=== PATIENT | male | born 1955 | race Caucasian/White ===

== ENCOUNTER 2016-09-22 15:47 | Emergency (ER) | payer OTHER ==
[~2016-09-22] VITALS: Ht 182.9 cm; Wt 79.5 kg
[~2016-09-22 15:47] MED LIST: ALBU18HF INHALATION; ARIP10TA16 PO; BUPR-97 PO; CLOP75TA3 PO; FLUT12AE8 IH; MULT-1073 PO; PRAV40TA PO; SERT100T9 PO
[2016-09-22 15:56] VITALS: BP 132/90; PULSE 85; RESP 14; O2SAT 96
--- NOTE | 2016-09-22 16:15 | ED.REPORT ---
HPI-General Illness Date of Service Sep 22, 2016 ED Provider: Shannon Mckeon MD The patient is a 61 year old male with history of previous psychiatric admissions, past suicide attempts, and alcohol abuse, who was brought to the emergency department by police for suicidal statements. The patient is highly intoxicated and told police he wants to hurt himself and wants to . When asked how, he stated with his blood pressure mediation. The patient is unwilling to cooperate with exam and interview at this time. He will be in seclusion, see [id number] evaluation time below. He was in this emergency department on 08/19 and had a full lab workup at that point. At this visit he was agitated enough that he required pharmacological sedation. 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 Nursing Notes Stated Complaint: MENTAL EVAL/[facility] Chief Complaint: Psychiatric Complaint Nursing Notes Reviewed: Yes Allergies: Coded Allergies: Penicillins (Verified Allergy, Unknown, 05/15/16) Scheduled Aripiprazole (Aripiprazole) 10 Mg Tablet 10 MG PO HS Bupropion ER (Wellbutrin XL) 150 Mg Tab.er.24h 150 MG PO DAILY Clopidogrel Bisulfate (Plavix) 75 Mg Tablet 75 MG PO DAILY Fluticasone Propionate (Flovent HFA 110 mcg) 12 Gm Aer.w.adap 2 PUFFS IH BID Multivits-Min/FA/Lycopene/Lut (Centrum Silver Tablet) 1 Each Tablet 1 EACH PO DAILY Pravastatin (Pravastatin) 40 Mg Tablet 40 MG PO DAILY Sertraline HCl (Sertraline) 100 Mg Tablet 200 MG PO DAILY Scheduled PRN Albuterol Sulfate (Ventolin HFA Inhaler) 200 Puff/18 Gm Inhaler 2 PUFF INHALATION Q4 PRN PRN respiratory support General Time Seen by MD: 16:15 Chief Complaint Altered mental status Hx Obtained From: Police Unable to Obtain Hx: Patient condition, Uncooperative Arrived By: Police Sudden in Onset?: No Onset Occurred: Onset unknown Symptom Duration: Duration unknown Similar Sx Previous: Yes Past Medical History Past Medical History History of previous Suicide attempts, last care center admission April 2016, also March 2015, also [facility] to [facility] August 2014 (suicide attempts in 2009 by overdose, again overdose in 2013) Hypertension High cholesterol History of peripheral arterial disease Emphysema Alcohol abuse Reports: COPD Past Surgical History Denies Family History Noncontributory Smoking History Current Every Day Smoker Social History Alcohol Use: >5 per day Drug Use: Denies drug use Other Social History: Local resident Occupation lives with mother. unemployed at present Ambulatory Status Independent Review of Systems Unable to Obtain ROS Patient condition, Uncooperative Full Review of Systems Psychiatric: Reports: Suicidal ideation (reported by police and ED nurse) Physical Exam Uncooperative with inital examination Vital Signs Vital Signs Date Time Temp Pulse Resp B/P Pulse Ox O2 Delivery O2 Flow Rate FiO2 09/22/16 23:01 36.1 79 18 94/62 94 Room Air 09/22/16 15:56 36.1 85 14 132/90 96 Initial VS: Reviewed ENT: Mucous membranes moist Neck: Full range of motion Respiratory: Breath sounds normal, No respiratory distress Neurologic: Nonfocal General/Constitutional: Awake, Alert Disheveled Head / Eyes: Atraumatic, Normocephalic Unable to Evaluate: Positive: Uncooperative Interpretation & Diagnostics Interpretation & Diagnostics: Urine drug screen: negative Breathalyzer at 2051: 0.148 Breathalyzer at 2348: 0.113 Re-Eval/Medical Decision Source of Hx: Old records Time of Eval: 16:15 Re-Evaluation/Progress Note: [id number] evaluation completed at this time. Flight risk, when unlocking the door to examine the patient he is quick to try to depart. I agree with seclusion for flight risk, suicide risk, and danger to self and others. Time of Eval: 23:56 Re-Evaluation/Progress Note: Rechecked the patient. He is sleeping comfortably. I was able to preform the examination at this time. He is much more calm. He is awake but states he is tired. His heart and lungs are normal. He is still technically intoxication and clearly still suicidial. I anticipate that he will need need DCR evaluation and the patient will be turned over to Dr. Novak. Counseled Regarding: Diagnosis, Lab results Discharge & Departure Shift Change Sign-Out Patient Care Transferred: Yes (to Dr Novak) Discussed Complaint(s): Yes Response to Therapy: Improved, Discussed Initially very drunk and agressive. By midnight, still drunk, but much more cooperative. Allows full exam. Still states he very much wants to hurt himself. ETOH .11. Suspect he will need group home for suicidal ideation with plan to take pills. Not a good dano voluntary admit, continues to try to leave AMA despite calling police to ask for help initially. Lab work done 08/19/16 and was unremarkable. No medical reason to repeat labs today. Primary Impression: Suicidal ideation Additional Impression: Alcohol intoxication Discharge Condition All VS Reviewed: Yes Condition: Stable Referrals: Mercedes Stern MD (PCP) Care Transferred to: Dr. Novak Care Transferred at: 00:10 Scribe Attestation Portions of this note were transcribed by Nette Kelsey. I, Dr. Mckeon personally performed the history, physical exam and medical decision-making; I reviewed and confirmed the accuracy of the information in the transcribed note. Signed by:Kristen Borges, 09/22/2016 and 0018. copies to: Mercedes Stern MD, Shawna L MD Sep 22, 2016 16:15 Nette Kelsey Sep 22, 2016 16:28
[2016-09-22 23:01] VITALS: BP 94/62; PULSE 79; RESP 18; O2SAT 94
[2016-09-23 04:18] VITALS: BP 136/86; PULSE 92; RESP 16; O2SAT 95
[2016-09-23 07:56] VITALS: BP 141/89; PULSE 114; RESP 20; O2SAT 96
== END 2016-09-23 07:49 | disposition home or self-care (01) ==
LOC: SED 15:47
DX: R45.851 Suicidal ideations (principal); F10.129 Alcohol abuse with intoxication, unspecified; J44.9 Chronic obstructive pulmonary disease, unspecified; I10 Essential (primary) hypertension; F17.200 Nicotine dependence, unspecified, uncomplicated; Z91.5 Personal history of self-harm; Z88.0 Allergy status to penicillin

== ENCOUNTER 2016-09-26 13:18 | Emergency (ER) | payer OTHER ==
--- NOTE | 2016-09-26 13:59 | ED.REPORT ---
HPI-Psychiatric Illness Date of Service Sep 26, 2016 ED Provider: Williams Menjivar Patient is a 61 year old male with a history of alcohol abuse, suicidal ideation , and previous suicide attempt who presents to the ED in police custody after telling his counselor that he was suicidal with a plan to take all of his medications at once. The patient is unwilling to cooperate with exam and interview at this time. He will be in seclusion, see [id number] evaluation time below. Patient was seen in the department 4 days ago for similar circumstances. Nursing Notes Stated Complaint: SUICIDAL Chief Complaint: Psychiatric Complaint Nursing Notes Reviewed: Yes Allergies: Coded Allergies: Penicillins (Verified Allergy, Unknown, 05/15/16) Scheduled Aripiprazole (Aripiprazole) 10 Mg Tablet 10 MG PO HS Bupropion ER (Wellbutrin XL) 150 Mg Tab.er.24h 150 MG PO DAILY Clopidogrel Bisulfate (Plavix) 75 Mg Tablet 75 MG PO DAILY Fluticasone Propionate (Flovent HFA 110 mcg) 12 Gm Aer.w.adap 2 PUFFS IH BID Multivits-Min/FA/Lycopene/Lut (Centrum Silver Tablet) 1 Each Tablet 1 EACH PO DAILY Pravastatin (Pravastatin) 40 Mg Tablet 40 MG PO DAILY Sertraline HCl (Sertraline) 100 Mg Tablet 200 MG PO DAILY Scheduled PRN Albuterol Sulfate (Ventolin HFA Inhaler) 200 Puff/18 Gm Inhaler 2 PUFF INHALATION Q4 PRN PRN respiratory support General Time Seen by MD: 13:58 Chief Complaint Suicidal ideation Hx Obtained From: Patient, Police Arrived By: Police Similar Sx Previous: Yes Risk-Psychiatric Illness Risk Notes: not cooperative with RF review Suicide Risk Stratification RF Statements: Risk factors N/A Past Medical History Past Medical History History of previous Suicide attempts, last care center admission April 2016, also March 2015, also [facility]A to [facility] August 2014 (suicide attempts in 2009 by overdose, again overdose in 2013) Hypertension High cholesterol History of peripheral arterial disease Emphysema Alcohol abuse Depression Anxiety Reports: COPD Past Surgical History vasectomy Family History Noncontributory Smoking History Current Every Day Smoker Social History Previous suicide attempt Alcohol Use: >5 per day Drug Use: Denies drug use Other Social History: Local resident Occupation lives with mother. unemployed at present Ambulatory Status Independent Review of Systems Unable to Obtain ROS Uncooperative Physical Exam Initial Vital Signs Vital Signs (First) Date Time Temp Pulse Resp B/P Pulse Ox O2 Delivery O2 Flow Rate FiO2 09/26/16 16:22 36.4 65 14 111/71 100 Room Air Head / Eyes: Atraumatic, Normocephalic Neck: Supple Respiratory: Breath sounds normal, Clear to auscultation, No respiratory distress Cardiovascular: Regular rate & rhythm, Heart sounds normal, Intact distal pulses Abdomen / GI: Soft, Non-tender Skin: Warm, Dry General/Constitutional: Awake, Alert, Well developed Alert, refusing to talk Unable to Evaluate: Positive: Uncooperative Nonverbal, Will not make eye contact, resisting examination. Uncooperative when preparing to be seen. Interpretation & Diagnostics Lab Results Interpretation Result Diagram: 09/26/16 1620 09/26/16 1620 Test 09/26/16 16:20 White Blood Count 5.4th/mm3 (3.8-10.1) Red Blood Count 4.65mil/mm3 (4.40-5.80) Hemoglobin 15.4g/dL (13.8-17.2) Hematocrit 44.4% (41.0-50.0) Mean Corpuscular Volume 95.5fL (81-100) Mean Corpuscular Hemoglobin 33.1pg (27.0-35.0) Mean Corpuscular Hemoglobin Concent 34.7% (32.0-37.0) Red Cell Distribution Width 14.0% (12.3-15.4) Platelet Count 188bil/L (150-400) Neutrophils (%) (Auto) 48.4% (40-74) Lymphocytes (%) (Auto) 40.9% (14-46) Monocytes (%) (Auto) 6.4% (4-12) Eosinophils (%) (Auto) 3.4% (0-5) Basophils (%) (Auto) 0.7% (0-3) Sodium Level 143mEq/L (134-144) Potassium Level 4.2mEq/L (3.5-5.2) Chloride Level 104mEq/L (97-108) Carbon Dioxide Level 22mmol/L (18-29) Blood Urea Nitrogen 12mg/dL (6-24) Creatinine 0.90mg/dL (0.76-1.27) Estimat Glomerular Filtration Rate 92mL/min (>59) Glucose Level 89mg/dL (60-99) Calcium Level 8.4mg/dL (8.5-10.1) Total Bilirubin 0.2mg/dL (0.0-1.2) Aspartate Amino Transf (AST/SGOT) 32U/L (0-50) Alanine Aminotransferase (ALT/SGPT) 27U/L (0-44) Alkaline Phosphatase 136U/L (25-160) Total Protein 7.0g/dL (6.4-8.4) Albumin 4.3g/dL (3.4-5.0) Thyroid Stimulating Hormone (TSH) 1.110uIU/mL (0.450-4.500) Hold Epps Top Tube Received (Received) Alcohol, Quantitative 239mg/dL (0-10) Re-Eval/Medical Decision Med Decision/Clinical Course 61-year-old male intoxicated and with suicidal ideation. He required greater than restraint in the past. Today he is not interacting or making eye or making eye contact. Started in 4. restraints and sedated with Haldol IM. Will have to be sobered. Re-Evaluation/Progress #1: Time of Eval: 14:37 Re-Evaluation/Progress Note: Attempt to re-examine patient. He is still uncooperative. Re-Evaluation/Progress #2: Time of Eval: 16:04 Re-Evaluation/Progress Note: Rechecked patient. He is somnolent but cooperative. Eyes opne, responsive, not actively resisting. Re-Evaluation/Progress #3: Time of Eval: 18:39 Patient Status: Condition improved Re-Evaluation/Progress Note: Pt rechecked by Dr. Jackson after shift-change signover. He is sleeping comfortably and is no long in restraints. Discharge & Departure Shift Change Sign-Out Patient Care Transferred: Yes Discussed Complaint(s): Yes Laboratory Evaluation: Lab evaluation discussed Additonal Information: Transfer of care to [facility] at 1800 Referrals: Mercedes Stern MD (PCP) Scribe Attestation Portions of this note were transcribed by Jevon Sultana. I, Dr. Menjivar personally performed the history, physical exam and medical decision-making; I reviewed and confirmed the accuracy of the information in the transcribed note. Signed by: Jevon Sultana 09/26/16, 1808 copies to: Mercedes Stern MD, Donald L MD Sep 26, 2016 13:59 JEVON SULTANA Sep 26, 2016 14:09 ARIELA HOYOS Sep 26, 2016 18:39
[2016-09-26] MEDS ORDERED: Haloperidol 5 mg/mL Inj IM ONE (14:40)
[2016-09-26 16:22] VITALS: BP 111/71; PULSE 65; RESP 14; O2SAT 100
[2016-09-26 16:34] LABS: BASOPHILS % (AUTO) 0.7 % (0-3); EOSINOPHILS % (AUTO) 3.4 % (0-5); MONOCYTES % (AUTO) 6.4 % (4-12); Mean Corpuscular Hemoglobin 33.1 pg (27.0-35.0); Mean Corpuscular Volume 95.5 fL (81-100); NEUTROPHILS % (AUTO) 48.4 % (40-74); Platelet Count 188 bil/L (150-400)
[2016-09-26 23:19] VITALS: BP 129/68; PULSE 60; RESP 24; O2SAT 98
[2016-09-27 00:57] VITALS: BP 135/81; PULSE 133; RESP 22; O2SAT 95
== END 2016-09-27 00:58 | disposition home or self-care (01) ==
LOC: SED 13:18
DX: F10.129 Alcohol abuse with intoxication, unspecified (principal); R45.851 Suicidal ideations; I10 Essential (primary) hypertension; J44.9 Chronic obstructive pulmonary disease, unspecified; F17.200 Nicotine dependence, unspecified, uncomplicated; Z91.5 Personal history of self-harm; Z88.0 Allergy status to penicillin
CPT/HCPCS: 36415; 80053; 81002; 82075; 84443; 85025; 96372; 99285; G0480; J1200; J1630

== ENCOUNTER 2016-10-04 02:22 | Emergency (ER) | payer OTHER ==
[~2016-10-04] VITALS: Ht 185.4 cm; Wt 81.8 kg
[2016-10-04 02:29] VITALS: BP 124/83; PULSE 72; O2SAT 97
--- NOTE | 2016-10-04 02:35 | ED.REPORT ---
HPI-Psychiatric Illness Date of Service Oct 04, 2016 ED Provider: Manuel Cooper MD Pt is a 61 y.o. male with a hx of hospitalization secondary to suicide attempts , anxiety, depression, and ETOH abuse who presents to the ED via police c/o suicidal ideation. Pt called [facility] stating he wanted to take a 'lot of pills' and wanted to be taken to the hospital, they contacted police. Per police, pt requested to be taken to [facility]', when informed by officers that they could not take him there but could bring him to [place] or [facility] the pt requested [facility]. Upon arrival to the ED pt is still requesting to be transferred to [facility]. Pt endorses to ETOH use. Nursing Notes Stated Complaint: SUICIDAL IDEATION Chief Complaint: Psychiatric Complaint Nursing Notes Reviewed: Yes Allergies: Coded Allergies: Penicillins (Verified Allergy, Unknown, 10/04/16) Scheduled Aripiprazole (Aripiprazole) 10 Mg Tablet 10 MG PO HS Bupropion ER (Wellbutrin XL) 150 Mg Tab.er.24h 150 MG PO DAILY Clopidogrel Bisulfate (Plavix) 75 Mg Tablet 75 MG PO DAILY Fluticasone Propionate (Flovent HFA 110 mcg) 12 Gm Aer.w.adap 2 PUFFS IH BID Multivits-Min/FA/Lycopene/Lut (Centrum Silver Tablet) 1 Each Tablet 1 EACH PO DAILY Pravastatin (Pravastatin) 40 Mg Tablet 40 MG PO DAILY Sertraline HCl (Sertraline) 100 Mg Tablet 200 MG PO DAILY Scheduled PRN Albuterol Sulfate (Ventolin HFA Inhaler) 200 Puff/18 Gm Inhaler 2 PUFF INHALATION Q4 PRN PRN respiratory support General Time Seen by MD: 02:35 Chief Complaint Suicidal ideation Hx Obtained From: Patient, Police Arrived By: Police Onset Occurred: Just prior to arrival Context of Onset: Intoxicated, alcohol Symptom Duration: Since onset Risk-Psychiatric Illness Suicide Risk Stratification Suicide Risk Factors - Adult: : Alcohol use: Previous attempt: Prior psych admission RF Statements: Risk factors reviewed Past Medical History Past Medical History History of previous Suicide attempts, last care center admission April 2016, also March 2015, also SAMANTHA to [facility] August 2014 (suicide attempts in 2009 by overdose, again overdose in 2013) Hypertension High cholesterol History of peripheral arterial disease Emphysema Alcohol abuse Depression Anxiety Reports: COPD Past Surgical History vasectomy Family History Noncontributory Smoking History Current Every Day Smoker Social History Previous suicide attempt Alcohol Use: >5 per day Drug Use: Denies drug use Other Social History: Local resident Occupation lives with mother. unemployed at present Ambulatory Status Independent Review of Systems ETOH intoxication Psychiatric: Reports: Suicidal ideation Complete sys rev & neg: except as marked. Physical Exam Initial Vital Signs Vital Signs (First) Date Time Temp Pulse Resp B/P Pulse Ox O2 Delivery O2 Flow Rate FiO2 10/04/16 02:29 36.3 72 124/83 97 Room Air 10/04/16 06:05 14 Initial VS: Reviewed Respiratory: Breath sounds normal, No respiratory distress Cardiovascular: Regular rate & rhythm Abdomen / GI: No distention Extremities: Vascular intact, Neuro intact Skin: Warm, Dry, No cyanosis General/Constitutional: Awake, Alert, Well appearing, Well developed, Well hydrated, Well nourished, Not toxic appearing Behavior: Positive: Uncooperative Appearance / Presentation: Positive: Intoxicated Pt is resiting evaluation Neurologic: Oriented X3, Speech NL, No motor deficits, Gait NL Psychiatric: Not homicidal, No hallucinations Abnormal Thinking / Perception: Positive: Suicidal, with plan (Overdose) Head / Eyes: Atraumatic, Normocephalic Eye Movement: Positive: Nystagmus present Interpretation & Diagnostics Lab Results Interpretation Result Diagram: 10/04/16 0338 10/04/16 0338 Test 10/04/16 03:38 White Blood Count 5.5th/mm3 (3.8-10.1) Red Blood Count 4.83mil/mm3 (4.40-5.80) Hemoglobin 16.0g/dL (13.8-17.2) Hematocrit 46.5% (41.0-50.0) Mean Corpuscular Volume 96.3fL (81-100) Mean Corpuscular Hemoglobin 33.1pg (27.0-35.0) Mean Corpuscular Hemoglobin Concent 34.4% (32.0-37.0) Red Cell Distribution Width 13.8% (12.3-15.4) Platelet Count 176bil/L (150-400) Neutrophils (%) (Auto) 53.3% (40-74) Lymphocytes (%) (Auto) 34.2% (14-46) Monocytes (%) (Auto) 7.7% (4-12) Eosinophils (%) (Auto) 3.7% (0-5) Basophils (%) (Auto) 0.7% (0-3) Sodium Level 141mEq/L (134-144) Potassium Level 4.2mEq/L (3.5-5.2) Chloride Level 102mEq/L (97-108) Carbon Dioxide Level 23mmol/L (18-29) Blood Urea Nitrogen 9mg/dL (6-24) Creatinine 1.04mg/dL (0.76-1.27) Estimat Glomerular Filtration Rate 78mL/min (>59) Glucose Level 105mg/dL (60-99) Calcium Level 8.9mg/dL (8.5-10.1) Total Bilirubin 0.3mg/dL (0.0-1.2) Aspartate Amino Transf (AST/SGOT) 35U/L (0-50) Alanine Aminotransferase (ALT/SGPT) 36U/L (0-44) Alkaline Phosphatase 119U/L (25-160) Total Protein 7.1g/dL (6.4-8.4) Albumin 4.0g/dL (3.4-5.0) Thyroid Stimulating Hormone (TSH) 1.780uIU/mL (0.450-4.500) Hold Epps Top Tube Received (Received) Alcohol, Quantitative 207mg/dL (0-10) Re-Eval/Medical Decision Med Decision/Clinical Course Alcoholic patient with history of depression, and suicidal threats in association with excess alcohol consumption, presents here ostensibly for transport [facility]. I contacted [facility] and they have no bed in no particular intention of admitting him. He arrived is voluntary and then tried to leave. We explained to him he would no longer be voluntary rigidity would be forced to stay. He has relented at this point and will remain through his evaluation. His alcohol was 207 on intake, and he will require sobriety before further review can be conducted. He was uncooperative with initial physical exam but is in no distress. Care transferred to Dr. Andesron at 6 AM. Source of Hx: Old records Consultation : Call Returned at: 02:45 Note: Discussed with Donavan Hsu's pt's request to be transferred. They are unable to accomadate the pt at this time. Counseled Regarding: Diagnosis, Lab results, Need for follow-up, When/why to return to ED Discharge & Departure Shift Change Sign-Out Response to Therapy: Improved Impression: Primary Impression: Suicidal ideation Additional Impression: Alcohol intoxication Complication of substance-induced condition: uncomplicated Qualified Code: F10.120 - Alcohol abuse with intoxication, uncomplicated Discharge Condition All VS Reviewed: Yes Condition: Stable Referrals: Mercedes Stern MD (PCP) Care Transferred to: Dr. Soto Care Transferred at: 06:00 Kristen Attestation Portions of this note were transcribed by Dariusz Johnson. I, Dr. Cooper personally performed the history, physical exam and medical decision-making; I reviewed and confirmed the accuracy of the information in the transcribed note. Signed by: Kristen Leung, 10/04/16 and 0534. copies to: Mercedes Stern MD, Christopher W MD Oct 04, 2016 02:35 DARIUSZ JOHNSON Oct 04, 2016 02:48
[2016-10-04 03:53] LABS: BASOPHILS % (AUTO) 0.7 % (0-3); EOSINOPHILS % (AUTO) 3.7 % (0-5); MONOCYTES % (AUTO) 7.7 % (4-12); Mean Corpuscular Hemoglobin 33.1 pg (27.0-35.0); Mean Corpuscular Volume 96.3 fL (81-100); NEUTROPHILS % (AUTO) 53.3 % (40-74); Platelet Count 176 bil/L (150-400)
[2016-10-04 06:05] VITALS: BP 113/77; PULSE 81; RESP 14; O2SAT 97
[2016-10-04 10:06] VITALS: BP 140/86; PULSE 86; O2SAT 94
[2016-10-04 12:50] VITALS: BP 153/98; PULSE 76; O2SAT 96
[2016-10-04 15:25] VITALS: BP 153/98; PULSE 76; RESP 14; O2SAT 96
== END 2016-10-04 15:26 | disposition home or self-care (01) ==
LOC: SED 02:22
DX: R45.851 Suicidal ideations (principal); F10.120 Alcohol abuse with intoxication, uncomplicated; F17.200 Nicotine dependence, unspecified, uncomplicated; Z91.5 Personal history of self-harm
CPT/HCPCS: 36415; 80053; 82075; 84443; 85025; 90791; 99284; G0480

== ENCOUNTER 2016-10-27 12:28 | Emergency (ER) | payer OTHER ==
[2016-10-27 12:38] VITALS: BP 138/93; PULSE 73; RESP 21; O2SAT 97
--- NOTE | 2016-10-27 13:26 | ED.REPORT ---
HPI-Psychiatric Illness Date of Service Oct 27, 2016 ED Provider: Francisco Hall MD Pt is a 61 y/o male w/ a long hx of alcohol abuse, psychiatric admissions, suicide attempts, anxiety, depression, presenting to the ED via police due to suicidal ideations onset today. The patient is intoxicated at the moment and no history is able to be obtained at time of interview. He is uncooperative and does not wish to answer questions once he is awoken. [place] reports that the pt had a time study analyst knife at home and plan was to cut his stomach today. Nursing Notes Stated Complaint: INVOLUNTARY Chief Complaint: Psychiatric Complaint Nursing Notes Reviewed: Yes Allergies: Coded Allergies: Penicillins (Verified Allergy, Unknown, 10/04/16) Scheduled Aripiprazole (Aripiprazole) 10 Mg Tablet 10 MG PO HS Bupropion ER (Wellbutrin XL) 150 Mg Tab.er.24h 150 MG PO DAILY Clopidogrel Bisulfate (Plavix) 75 Mg Tablet 75 MG PO DAILY Fluticasone Propionate (Flovent HFA 110 mcg) 12 Gm Aer.w.adap 2 PUFFS IH BID Multivits-Min/FA/Lycopene/Lut (Centrum Silver Tablet) 1 Each Tablet 1 EACH PO DAILY Pravastatin (Pravastatin) 40 Mg Tablet 40 MG PO DAILY Sertraline HCl (Sertraline) 100 Mg Tablet 200 MG PO DAILY Scheduled PRN Albuterol Sulfate (Ventolin HFA Inhaler) 200 Puff/18 Gm Inhaler 2 PUFF INHALATION Q4 PRN PRN respiratory support General Time Seen by MD: 13:07 Chief Complaint Suicidal ideation Hx Obtained From: Police Unable to Obtain Hx: Uncooperative, Intoxicated, Mental status Arrived By: Police Onset Occurred: 1 - 4 hours ago Symptom Duration: Since onset Progression Since Onset: Unchanged Risk-Psychiatric Illness Suicide Risk Stratification Suicide Risk Factors - Adult: : Alcohol use: Previous attempt: Prior psych admission: Substance abuse RF Statements: Risk factors reviewed Past Medical History Past Medical History History of previous Suicide attempts, last care center admission April 2016, also March 2015, also SAMANTHA to [facility] August 2014 (suicide attempts in 2009 by overdose, again overdose in 2013) Hypertension High cholesterol History of peripheral arterial disease Emphysema Alcohol abuse Depression Anxiety Reports: COPD Past Surgical History vasectomy Family History Noncontributory Smoking History Current Every Day Smoker Social History Previous suicide attempt Alcohol Use: >5 per day Drug Use: Denies drug use Other Social History: Local resident Occupation lives with mother. unemployed at present Ambulatory Status Independent Review of Systems Unable to Obtain ROS Uncooperative, Intoxicated, Mental status Psychiatric: Reports: Suicidal ideation Physical Exam Initial Vital Signs Vital Signs (First) Date Time Temp Pulse Resp B/P Pulse Ox O2 Delivery O2 Flow Rate FiO2 10/27/16 12:38 36.6 73 21 138/93 97 Room Air Initial VS: Reviewed, Vital signs normal Head / Eyes: Atraumatic, Normocephalic, PERRL ENT: Mucous membranes moist, Conjunctiva normal, No scleral icterus Neck: Supple, Full range of motion Respiratory: Breath sounds normal, Clear to auscultation, No respiratory distress Cardiovascular: Regular rate & rhythm, Heart sounds normal, Intact distal pulses Abdomen / GI: Soft, Non-tender Extremities: Vascular intact, Neuro intact, No swelling, No tenderness Skin: Warm, Dry, No cyanosis General/Constitutional: Awake, Alert, Not toxic appearing Behavior: Positive: Appears intoxicated, Uncooperative Appearance / Presentation: Positive: Intoxicated Sleeping comfortably - once awoken he does not wish to answer questions Neurologic: No motor deficits, No sensory deficits Opens eyes to voice and withdraws from pain Psychiatric: No hallucinations Unable to assess secondary to noncompliance vs intoxication Interpretation & Diagnostics Lab Results Interpretation Result Diagram: 10/27/16 1500 10/27/16 1500 Test 10/27/16 15:00 10/27/16 15:20 White Blood Count 7.4th/mm3 (3.8-10.1) Red Blood Count 5.53mil/mm3 (4.40-5.80) Hemoglobin 18.9g/dL (13.8-17.2) Hematocrit 53.6% (41.0-50.0) Mean Corpuscular Volume 96.9fL (81-100) Mean Corpuscular Hemoglobin 34.2pg (27.0-35.0) Mean Corpuscular Hemoglobin Concent 35.3% (32.0-37.0) Red Cell Distribution Width 14.5% (12.3-15.4) Platelet Count 235bil/L (150-400) Neutrophils (%) (Auto) 47.1% (40-74) Lymphocytes (%) (Auto) 42.3% (14-46) Monocytes (%) (Auto) 6.4% (4-12) Eosinophils (%) (Auto) 3.0% (0-5) Basophils (%) (Auto) 0.9% (0-3) Sodium Level 141mEq/L (134-144) Potassium Level 5.0mEq/L (3.5-5.2) Chloride Level 101mEq/L (97-108) Carbon Dioxide Level 23mmol/L (18-29) Blood Urea Nitrogen 7mg/dL (6-24) Creatinine 0.95mg/dL (0.76-1.27) Estimat Glomerular Filtration Rate 86mL/min (>59) Glucose Level 109mg/dL (60-99) Calcium Level 9.2mg/dL (8.5-10.1) Total Bilirubin 0.3mg/dL (0.0-1.2) Aspartate Amino Transf (AST/SGOT) 28U/L (0-50) Alanine Aminotransferase (ALT/SGPT) 28U/L (0-44) Alkaline Phosphatase 137U/L (25-160) Total Protein 7.9g/dL (6.4-8.4) Albumin 4.6g/dL (3.4-5.0) Thyroid Stimulating Hormone (TSH) 1.650uIU/mL (0.450-4.500) Alcohol, Quantitative 208mg/dL (0-10) Hold Epps Top Tube Received (Received) Re-Eval/Medical Decision Med Decision/Clinical Course 61-year-old male with history of alcohol abuse and long history of suicidal ideation presenting with suicidal ideation with plan to kill himself with a knife to his abdomen. He is acutely intoxicated with blood alcohol level 200. He is sobering up and then will be evaluated by social work. Signed patient out to Dr. Krishna. Source of Hx: Old records Counseled Regarding: Diagnosis, Lab results Discharge & Departure Impression: Primary Impression: Suicidal ideation Additional Impression: Acute alcohol intoxication Complication of substance-induced condition: uncomplicated Qualified Code: F10.120 - Alcohol abuse with intoxication, uncomplicated Discharge Condition All VS Reviewed: Yes Condition: Stable Referrals: Mercedes Stern MD (PCP) Care Transferred to: Dr. Neal Krishna DO Care Transferred at: 18:00 Scribe Attestation Portions of this note were transcribed by Dustin Rodriguez. I, Dr. Hall personally performed the history, physical exam and medical decision-making; I reviewed and confirmed the accuracy of the information in the transcribed note. Signed by Kristen Bragg, 10/27/16 - 1799 copies to: Mercedes Stern MD, Ben M MD Oct 27, 2016 13:26 DUSTIN RODRIGUEZ Oct 27, 2016 13:38
[2016-10-27 14:32] VITALS: BP 140/86; PULSE 91; RESP 20; O2SAT 96
[2016-10-27 15:45] LABS: BASOPHILS % (AUTO) 0.9 % (0-3); MONOCYTES % (AUTO) 6.4 % (4-12); Mean Corpuscular Hemoglobin 34.2 pg (27.0-35.0); Mean Corpuscular Volume 96.9 fL (81-100); NEUTROPHILS % (AUTO) 47.1 % (40-74); Platelet Count 235 bil/L (150-400)
[2016-10-27 21:51] VITALS: BP 129/75; PULSE 83; RESP 16; O2SAT 98
== END 2016-10-27 21:58 | disposition home or self-care (01) ==
LOC: SED 12:28
DX: R45.851 Suicidal ideations (principal); F10.120 Alcohol abuse with intoxication, uncomplicated; I10 Essential (primary) hypertension; F17.200 Nicotine dependence, unspecified, uncomplicated; Z88.0 Allergy status to penicillin
CPT/HCPCS: 36415; 80053; 84443; 85025; 99284; G0480

== ENCOUNTER 2016-12-20 16:00 | Inpatient (IN) | payer OTHER ==
[~2016-12-20] VITALS: Ht 185.4 cm; Wt 81.8 kg
[2016-12-20 16:05] VITALS: BP 137/98; PULSE 103; RESP 18; O2SAT 97
--- NOTE | 2016-12-20 16:10 | ED.REPORT ---
HPI-Psychiatric Illness Date of Service Dec 20, 2016 ED Provider: Dr. Soto 61 y/o male with a hx of depression, anxiety and previous suicide attempts who was brought it in to the ED by the police for depression and suicidal ideation. He reported to the police that he has been drinking EtOH. As per the police report, he had a plan to run into the traffic. Pt stated that he did not feel good and denies any injury or falls, but otherwise would not cooperative in the ED. History difficult to obtain. Nursing Notes Stated Complaint: SUICIDAL Chief Complaint: Psychiatric Complaint Nursing Notes Reviewed: Yes Allergies: Coded Allergies: Penicillins (Verified Allergy, Unknown, 10/04/16) Scheduled Aripiprazole (Aripiprazole) 10 Mg Tablet 10 MG PO HS Bupropion ER (Wellbutrin XL) 150 Mg Tab.er.24h 150 MG PO DAILY Clopidogrel Bisulfate (Plavix) 75 Mg Tablet 75 MG PO DAILY Fluticasone Propionate (Flovent HFA 110 mcg) 12 Gm Aer.w.adap 2 PUFFS IH BID Multivits-Min/FA/Lycopene/Lut (Centrum Silver Tablet) 1 Each Tablet 1 EACH PO DAILY Pravastatin (Pravastatin) 40 Mg Tablet 40 MG PO DAILY Sertraline HCl (Sertraline) 100 Mg Tablet 200 MG PO DAILY Scheduled PRN Albuterol Sulfate (Ventolin HFA Inhaler) 200 Puff/18 Gm Inhaler 2 PUFF INHALATION Q4 PRN PRN respiratory support General Time Seen by MD: 16:10 Chief Complaint Suicidal ideation Hx Obtained From: Police Unable to Obtain Hx: Intoxicated Arrived By: Police Symptom Duration: Since onset Severity: Current: No pain currently Severity: Maximum: No pain Recent Healthcare: Recent doctor visit Similar Sx Previous: Yes Risk-Psychiatric Illness Suicide Risk Stratification Suicide Risk Factors - Adult: : Alcohol use: Previous attempt RF Statements: Risk factors reviewed Past Medical History Past Medical History History of previous Suicide attempts, last care center admission April 2016, also March 2015, also SAMANTHA to [facility] August 2014 (suicide attempts in 2009 by overdose, again overdose in 2013) Hypertension High cholesterol History of peripheral arterial disease Emphysema Alcohol abuse Depression Anxiety Reports: COPD Reports: Depression Past Surgical History vasectomy Family History Noncontributory Smoking History Current Every Day Smoker Social History Previous suicide attempt Alcohol Use: >5 per day Drug Use: Denies drug use Other Social History: Local resident Occupation lives with mother. unemployed at present Ambulatory Status Independent Review of Systems Unable to Obtain ROS Uncooperative Psychiatric: Reports: Depression, Suicidal ideation Physical Exam Initial Vital Signs Vital Signs (First) Date Time Temp Pulse Resp B/P Pulse Ox O2 Delivery O2 Flow Rate FiO2 12/20/16 16:05 36.1 103 18 137/98 97 Room Air Initial VS: Reviewed, Vital signs normal Head / Eyes: Atraumatic, Normocephalic ENT: Mucous membranes moist, Conjunctiva normal, No scleral icterus Neck: Supple, Full range of motion Respiratory: No respiratory distress Cardiovascular: Intact distal pulses Extremities: Vascular intact, Neuro intact Skin: Warm, Dry, No cyanosis General/Constitutional: Awake, Alert Good eye contact Appers intoxicated Flat affect Unresponsive Neurologic: Speech NL, No motor deficits Abnormal Mood/Affect: Positive: Flat affect Abnormal Thinking / Perception: Positive: Suicidal, with plan Interpretation & Diagnostics Lab Results Interpretation Result Diagram: 12/20/16 1621 12/20/16 1621 Test 12/20/16 16:21 12/20/16 20:50 White Blood Count 8.4th/mm3 (3.8-10.1) Red Blood Count 4.85mil/mm3 (4.40-5.80) Hemoglobin 16.4g/dL (13.8-17.2) Hematocrit 48.9% (41.0-50.0) Mean Corpuscular Volume 100.8fL (81-100) Mean Corpuscular Hemoglobin 33.8pg (27.0-35.0) Mean Corpuscular Hemoglobin Concent 33.5% (32.0-37.0) Red Cell Distribution Width 13.0% (12.3-15.4) Platelet Count 208bil/L (150-400) Neutrophils (%) (Auto) 62.6% (40-74) Lymphocytes (%) (Auto) 26.8% (14-46) Monocytes (%) (Auto) 7.1% (4-12) Eosinophils (%) (Auto) 2.4% (0-5) Basophils (%) (Auto) 0.7% (0-3) Sodium Level 139mEq/L (134-144) Potassium Level 4.0mEq/L (3.5-5.2) Chloride Level 101mEq/L (97-108) Carbon Dioxide Level 20mmol/L (18-29) Blood Urea Nitrogen 9mg/dL (6-24) Creatinine 0.78mg/dL (0.76-1.27) Estimat Glomerular Filtration Rate 108mL/min (>59) Glucose Level 97mg/dL (60-99) Calcium Level 9.2mg/dL (8.5-10.1) Total Bilirubin 0.2mg/dL (0.0-1.2) Aspartate Amino Transf (AST/SGOT) 20U/L (0-50) Alanine Aminotransferase (ALT/SGPT) 19U/L (0-44) Alkaline Phosphatase 99U/L (25-160) Total Protein 7.4g/dL (6.4-8.4) Albumin 4.1g/dL (3.4-5.0) Thyroid Stimulating Hormone (TSH) 1.770uIU/mL (0.450-4.500) Hold Urine Received (Received) General Lab Results Interp 1: Labs reviewed Re-Eval/Medical Decision Med Decision/Clinical Course Decompensated depression and suicidal ideations despite sobriety, we will plan to detain the patient as he does not agree to be safe. Also will plan to have the patient mated to an inpatient psychiatric facility. He is medically cleared from a psych perspective. Of note I do not see any records of severe alcohol withdrawal in his medical history based on visits to our hospital. Consultation : Consulted With: plant production worker, Mental health Call Returned at: 23:32 Note: Discussed case with social sciences instructor. Recommended VOA. Lakhani then evaluated patient. Pt will be detained. Counseled Regarding: Diagnosis Discharge & Departure Impression: Primary Impression: Suicidal ideation Additional Impression: Alcohol intoxication Complication of substance-induced condition: uncomplicated Qualified Code: F10.120 - Alcohol abuse with intoxication, uncomplicated Discharge Condition All VS Reviewed: Yes Referrals: Mercedes Stern MD (PCP) Scribe Attestation Portions of this note were transcribed by Ras Gambino and Dali Pepper. I, Dr. Soto personally performed the history, physical exam and medical decision-making;I reviewed and confirmed the accuracy of the information in the transcribed note. Signed by Ras Gambino and Dali Pepper, Inésibe. 12/20/16 [id number] copies to: Mercedes Stern MD, Timothy S DO Dec 20, 2016 16:10 Ras Gambino Dec 20, 2016 16:42 Dali Pepper Dec 20, 2016 20:29
[2016-12-20 16:30] LABS: BASOPHILS % (AUTO) 0.7 % (0-3); EOSINOPHILS % (AUTO) 2.4 % (0-5); MONOCYTES % (AUTO) 7.1 % (4-12); Mean Corpuscular Hemoglobin 33.8 pg (27.0-35.0); Mean Corpuscular Volume 100.8 fL (81-100); NEUTROPHILS % (AUTO) 62.6 % (40-74); Platelet Count 208 bil/L (150-400)
[2016-12-20 20:53] VITALS: BP 137/89; PULSE 105; RESP 16; O2SAT 94
[2016-12-21 01:44] VITALS: BP 124/84; PULSE 90; RESP 16; O2SAT 98
[2016-12-21] MEDS ORDERED: Benzocaine-Menthol Lozenge 2/Pkg PO PRN (01:50)
[2016-12-21] MEDS ORDERED: LORazepam 1 mg Tablet PO PRN ×2 (01:50→12:45)
[2016-12-21] MEDS ORDERED: hydrOXYzine Pamoate 25 mg Capsule PO PRN (01:50)
[2016-12-21] MEDS ORDERED: Alum-Mag Hydrox-Simeth 30 mL Suspension PO PRN (01:50)
[2016-12-21] MEDS ORDERED: Magnesium Hydroxide 10 mL Oral Concentration PO PRN (01:50)
[2016-12-21 02:02] VITALS: BP 124/84; PULSE 90; RESP 16; O2SAT 98
--- NOTE | 2016-12-21 02:45 | NUR ---
admit note nursing this is a 61 yr male who was brought to [facility] er by police. has been drinking and expressed wanting to by going into traffic or lying on railroad tracks. was medically cleared, evaluated and detained audrey as a danger to self. has been admitted to this unit 3 times and once to [facility]. has a hx of depression related to a divorce and fathers . made 2 previous attempts of overdose. no current out patient. arrived to this unit at 0200 with er/security staff. presented as flat and withdrawn. is cooperative with admission. physical assessment- denies any acute medical/physical injury/need and none is apparent. long hx of etoh use. no hx of withdrawal symptoms. completed the admission process, searched, agrees to no self harm, briefly oriented to the unit, given bed 219, appeared to sleep after 0230, assessed q 15 minutes. amira
--- NOTE | 2016-12-21 05:12 | NUR ---
Pt arrived to unit at 0200. He had signed paperwork with [facility] in ER. Went to bed after a brief orientation of what to expect for the rest of the night and morning. Asleep at 230. Pt observed every 15 minutes as ordered.
[2016-12-21] MEDS ORDERED: CLOP75TA28 PO (08:09)
[2016-12-21] MEDS ORDERED: METO-272 PO (08:09)
[2016-12-21] MEDS ORDERED: ATOR40TA69 PO (08:09)
[2016-12-21] MEDS ORDERED: Thiamine 100 mg/mL 2 mL Inj IM ONE (12:40)
--- NOTE | 2016-12-21 14:16 | HP ---
[address] [address] HISTORY AND PHYSICAL PATIENT: ACSTRO REYNOLDS : 1955 MR#: [id number] ADMIT: 12/21/2016 JOB ID: [id number] IDENTIFICATION OF PATIENT: The patient is a 61-year-old male previously known to the inpatient unit with most recent admission in April 2016. The patient reportedly was admitted through the emergency department under SAMANTHA status with significant concerns of safety with suicidal ideation under the influence of alcohol with the threat and plan of running into traffic. The patient readily identified that he has increased his alcohol intake over the past month of greater than 1/5 up to 1 L per day. CHIEF COMPLAINT: "I really do not want to go back through treatment, but I know I need to cut back on my drinking." HISTORY OF PRESENT ILLNESS: As stated above, the patient is a 61-year-old male well known to the inpatient unit. He reportedly has had greater than three admissions historically, most recent in April 2016, and also a previous detainment to [facility] in August 2014. The patient reportedly has a significant history of alcohol treatment in the past as well, stating that he went through [facility] greater than 10 years ago. In review of his current status, the patient states that he lives at home with his mother. 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 He indicates that he does have a fairly good pension. He reports that he has increased his alcohol intake over the past month but gave no specific reasoning. He indicates that he has no prior history of acute DTs or seizure activity. He reports that he does receive his medication interventions through his primary care physician through [facility] but is not currently connected with a psychiatric care provider. He reportedly is maintained on doses of Abilify 10 mg q.h.s., Wellbutrin 150 mg daily and Zoloft 200 mg daily but indicates that he primarily is just taking Zoloft. In review of his current status of depression he indicated that he is aware that alcohol is leading to increasing difficulties with depression. He states that he understands the mechanism and that he knows he needs to begin cutting back. He indicates that he would be willing to consider attendance at local AA chapter meetings and also is agreeable to initiate outpatient individual therapy, stating that it has been very difficult to get in to see anyone. He denies any evidence of current suicidal ideation, intent, or plan and stated that he knows that he becomes quite despondent when he is drinking. PAST MEDICAL HISTORY: Substantial for history of hypertension, hyperlipidemia, history of PAD, emphysema. ALLERGIES: He is allergic to PENICILLIN. CURRENT MEDICATIONS: Include: 1. Abilify 10 mg q.h.s. 2. Wellbutrin 150 mg XL daily which he both rarely takes. 3. Plavix 75 mg daily. 4. Flovent inhaler 2 puffs b.i.d. 5. Multivitamin Centrum 1 daily. 6. Pravastatin 40 mg daily. 7. Zoloft 200 mg daily. 8. He also has a p.r.n. albuterol inhaler. PAST PSYCHIATRIC HISTORY: Substantial for the above information. He has no current psychiatric services. SOCIAL HISTORY: Currently, the patient lives in the home of his mother. 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 He is . He has no contact with his adult children. He admits to the above alcohol intake. He denied any usage of substances. Abuse history was not reviewed. FAMILY HISTORY: Deferred. DEVELOPMENTAL HISTORY: The patient reportedly is a high school graduate from [employer]. He denies any college involvement. 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 MENTAL STATUS EXAMINATION: General appearance: The patient makes intermittent eye contact. He appears to be genuine and valid in his presentation. His speech is of normal tone, frequency, and volume. His mood is neutral. Affect was congruent. His thought process shows no evidence of random flight of ideas, loose or disconnected thinking. Thought content, he denies any evidence of current suicidal, homicidal ideation. He admitted to a conjoint suicidal ideation under the influence of alcohol but he indicates that this is much more related to his consumption of alcohol than anything. He denies any active hallucinations or delusions. He was alert, oriented to time and place. His attention and concentration are fair. Insight and judgment are fair. IMPRESSIONS: AXIS I 1. Alcohol use disorder, chronic, severe. 2. Alcohol-induced mood disorder. 3. Major depressive disorder, recurrent type, nonpsychotic, severe. 4. Generalized anxiety disorder by history. AXIS II Deferred. AXIS III 1. History of hypertension. 2. Hyperlipidemia. 3. Peripheral artery disease. 4. Emphysema. AXIS IV Stressors for chronic alcohol use, limited social support. AXIS V Global Assessment of Functioning current 40. PLAN: 1. Recommendation is for introductions of thiamin 200 mg IM and daily administration of 100 mg daily. 2. Recommendation is for introductions of Ativan on a taper to avoid any significant withdrawal. 3. Continuation of Zoloft 200 mg daily. 4. Discontinuation of Abilify and Wellbutrin based on the patient's significant limited response and also noncompliance noted. 5. Continuation of all other medications as noted. 6. Recommendation is for probable discharge tomorrow with referrals to be sent to outpatient individual therapy sites for combined interventions of psychiatric care, possible eventual chemical dependency treatment. Suggestion of [facility] was noted.
[2016-12-21] MEDS: MeTOProlol XL 50 mg ER24 Tablet PO SCH (14:30)
[2016-12-21 16:46] VITALS: BP 134/99; PULSE 80; RESP 20
--- NOTE | 2016-12-21 16:59 | NUR ---
Nursing Dayshift: S: "I don't think I'm going to have any problems detoxing." O: Patient discussing his usual experiences when he stops drinking alcohol. States he has never had the DT's. Has been in bed much of the AM and early afternoon. Has declined breakfast and lunch. Up mid afternoon and showered. Watching TV at present. Interactive on approach. Anxiety a 5/10 "it's alright". Depression a 5/10 "good". Denies harmful thoughts and hallucinations. A: Quiet. More animated this afternoon. P: CPOC. Monitor mood and behavior.
--- NOTE | 2016-12-21 17:54 | NUR ---
Observations [id number] Pt was asleep upon start of shift. He remained in bed much of the morning and afternoon. He did not get up for meals aside from dinner. Pt is not overly social with peers. He sat in the dining room watching TV and drinking coffee in the afternoon. Pt did attended dinner, eating 75%. Pt appears depressed and isolative. He showered in the afternoon. Pt was observed every 15 minutes of shift as directed.
--- NOTE | 2016-12-22 03:10 | NUR ---
Nursing Noc Pt isolative to room this shift. Reported history of drinking 1/5 to 1 liter alcohol daily. PRN Ativan available as needed. Possible lapse of SAMANTHA today with discharge home. Patient denies suicidal ideation or audio visual hallucinations. Anxiety 5/10, depression 5/10. Pt describes and tolerable. Continuing to monitor mood, behavior, and emotional state. Q15 minute safety checks throughout shift as ordered.
--- NOTE | 2016-12-22 03:38 | NUR ---
OBSERVATIONS 1900 TO 0700 Pt was remained in room during the noc shift. Pt was pleasant when spoken to. Pt was recorded asleep at 2130 and slept through the night. Q15 safety checks were maintained as directed.
[2016-12-22] MEDS: MeTOProlol XL 50 mg ER24 Tablet PO SCH (08:59)
--- NOTE | 2016-12-22 09:24 | PCM.DIMED ---
Discharge Instructions Date of Service Dec 22, 2016 Dates of Hospitalization Dec 21, 2016 at 01:23 Discharge Diagnosis Discharge Diagnosis Major Depression Recurrent Severe ETOH Use DO severe chronic Diet No restrictions Activity No restrictions Babak Montano DO Dec 22, 2016 09:24
--- NOTE | 2016-12-22 12:40 | NUR ---
Nursing Discharge Note: Patient cooperative with discharge process. Acknowledges understanding of d/c instructions and has a copy with them upon leaving unit at 1238. Belongings accounted for and with patient. No prescriptions due to patient having adequate supply of meds at home. Patient denies harmful thoughts and hallucinations at this time.
--- NOTE | 2016-12-22 14:01 | DIS ---
[address] [address] DISCHARGE SUMMARY PATIENT: CASTRO REYNOLDS : 1955 MR#: [id number] ADMIT: 12/21/2016 JOB ID: [id number] DIS: 12/22/2016 ADMITTING DIAGNOSES: AXIS I 1. Alcohol use disorder, chronic, severe. 2. Alcohol induced mood disorder. 3. Major depressive disorder, recurrent type, nonpsychotic, severe. 4. Generalized anxiety disorder. AXIS II Deferred. AXIS III 1. History of hypertension. 2. Hyperlipidemia. 3. PAD. 4. Emphysema. AXIS IV Stressors were noted for chronic alcohol abuse, limited social support. AXIS V Global assessment of functioning of current 40. DISCHARGE DIAGNOSES: AXIS I 1. Alcohol use disorder, chronic, severe. 2. Alcohol induced mood disorder. 3. Major depressive disorder, recurrent type, nonpsychotic, severe. 4. Generalized anxiety disorder. AXIS II Deferred. AXIS III 1. History of hypertension. 2. Hyperlipidemia. 3. PAD. 4. Emphysema. AXIS IV Stressors were noted for chronic alcohol abuse, limited social support. AXIS V Global assessment of functioning of current 50. REASON FOR ADMISSION: The patient was a 61-year-old male known to the inpatient unit with most recent admission in 2015. The patient was detained through the emergency department after significant concerns of suicidal ideation, under the influence of alcohol with a threat and plan of running into traffic. During the course of hospitalization, the patient openly identified significant difficulties with alcohol consumption up to 1 L per day over the past month. He was encouraged to consider applications to chemical dependency treatment but declined. He was agreeable on the day of discharge with participating in local AA chapter meetings and also a continuation of medication treatment of Zoloft. He was informed by myself that based on his current presentation that I would not recommend a continuation of his Abilify or Wellbutrin and the patient openly identified that he rarely took it anyway. He indicated that he was getting various side effects including difficulties with insomnia and some restlessness. Throughout the hospital course, the patient denied any evidence of further suicidal ideation, intent or plan. He openly identified that he only gets that way when he is drinking. MENTAL STATUS EXAMINATION: The patient was very cooperative, coherent and cohesive with his thought process. His speech was of normal tone, frequency and volume. His mood was neutral. His affect was congruent. His thought process showed no evidence of racing thoughts, flight of ideas, loose or disconnected thinking. Thought content: He denied any evidence of current suicidal ideation, intent or plan. No evidence of active hallucinations, delusions. He was alert, oriented to time and place. Attention and concentration intact. 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 Insight and judgment fair. DISCHARGE PLANS: Include: 1. Followup with his primary care physician at [facility] within the next month for routine medication management. 2. Continuation of Zoloft 200 mg daily. 3. Recommendations for participation in local AA chapters was highly suggested and encouraged.
--- NOTE | 2016-12-22 20:10 | NUR ---
Counseling/Scale Manager: S/O: Patient slept 7.25 hours of sleep last night per staff. He denies S/I and H/I. He denies auditory and visual hallucinations. Out-patient appointment: This bond underwriter was unable to schedule an out-patient appointment for patient due to power outage at [facility]. Patient has been instructed and given his Primary Care Physician's telephone number, to schedule an out-patient appointment. A: Patient is cooperative, hopeful. P: Follow care plan, coordinate out-patient providers.
== END 2016-12-22 12:38 | disposition home or self-care (01) | DRG 897 ==
LOC: SED 16:00 → MHC 12-21 01:23
PROVIDERS: ADMIT Psychiatry & Neurology Psychiatry; ATTEND Psychiatry & Neurology Psychiatry
DX: F10.14 Alcohol abuse with alcohol-induced mood disorder (principal); F33.2 Major depressive disorder, recurrent severe without psychotic features; R45.851 Suicidal ideations; E78.00 Pure hypercholesterolemia, unspecified; I10 Essential (primary) hypertension; F41.8 Other specified anxiety disorders; J44.9 Chronic obstructive pulmonary disease, unspecified; F17.210 Nicotine dependence, cigarettes, uncomplicated; R10.9 Unspecified abdominal pain; Z91.19 Patient's noncompliance with other medical treatment and regimen; I73.9 Peripheral vascular disease, unspecified

== ENCOUNTER 2016-12-26 23:00 | Emergency (ER) | payer OTHER ==
[~2016-12-26] VITALS: Ht 182.9 cm; Wt 63.6 kg
[~2016-12-26 23:00] MED LIST changes: +ATOR40TA69 PO; +CLOP75TA28 PO; +METO-272 PO
[2016-12-26 23:26] VITALS: BP 133/82; PULSE 83; RESP 24; O2SAT 96
--- NOTE | 2016-12-26 23:37 | ED.REPORT ---
HPI-Psychiatric Illness Date of Service Dec 26, 2016 ED Provider: Manuel Cooper MD Patient is an intoxicated 61 year old male with a history of alcohol abuse and depression with multiple prior suicide attempts and psychiatric admissions who presents to the ED via Police reportedly complaining of suicidal ideations, stating he would "walking into traffic tonight" to commit suicide. Per Police, the patient requested to be brought to the ED tonight. The patient admits that he was drinking alcohol this evening but states that he does not know why he is in the ED. He does not remember making an specific threats to kill himself. Patient thinks of hurting himself "all the time" but nothing is different tonight. The patient would simply like to sleep and is able to provide minimal history during initial evaluation. Patient was recently admitted to the Care Center from 12/21-12/22 for depression, suicidal ideations, and alcohol abuse. The patient was discharged to follow-up with AA and continue taking Zoloft. He declined to enroll in a chemical dependency treatment program. Patient denies any injuries or cold-like symptoms. Nursing Notes Stated Complaint: MENTAL HEALTH Chief Complaint: Psychiatric Complaint Nursing Notes Reviewed: Yes Allergies: Coded Allergies: Penicillins (Verified Allergy, Unknown, 12/26/16) Scheduled Atorvastatin Calcium (Atorvastatin Calcium) 40 Mg Tablet 40 MG PO DAILYWD Clopidogrel (Clopidogrel) 75 Mg Tablet 75 MG PO DAILY Metoprolol Succinate ER (Metoprolol Succinate ER) 50 Mg Tab.er.24h 50 MG PO DAILY Sertraline HCl (Sertraline) 100 Mg Tablet 200 MG PO DAILY General Time Seen by MD: 23:36 Chief Complaint Suicidal ideation Hx Obtained From: Patient, Police Unable to Obtain Hx: Intoxicated Arrived By: Police Onset Occurred: 1 - 4 hours ago Severity: Current: No pain currently Severity: Maximum: No pain Recent Healthcare: Recent doctor visit, Recent hospitalization Similar Sx Previous: Yes Risk-Psychiatric Illness Suicide Risk Stratification Suicide Risk Factors - Adult: : Alcohol use: Previous attempt: Prior psych admission RF Statements: Risk factors reviewed Past Medical History Past Medical History History of previous Suicide attempts, last [facility] admission March 2015, April 2016, and December 2016. also SAM[facility]THA to [facility] August 2014 (suicide attempts in 2009 by overdose, again overdose in 2013) Hypertension High cholesterol History of peripheral arterial disease Emphysema Alcohol abuse Depression Anxiety Reports: COPD Reports: Depression Past Surgical History vasectomy Family History Noncontributory Smoking History Current Every Day Smoker Social History Previous suicide attempt Alcohol Use: >5 per day Drug Use: Denies drug use Other Social History: Local resident Occupation lives with mother. unemployed at present Ambulatory Status Independent Review of Systems Unable to Obtain ROS Intoxicated Psychiatric: Reports: Depression, Suicidal ideation Physical Exam Initial Vital Signs Vital Signs (First) Date Time Temp Pulse Resp B/P Pulse Ox O2 Delivery O2 Flow Rate FiO2 12/26/16 23:26 83 24 133/82 96 Room Air 12/27/16 01:02 36.1 Initial VS: Reviewed Head / Eyes: Atraumatic, Normocephalic, PERRL ENT: Conjunctiva normal, No scleral icterus Neck: Supple, Full range of motion Respiratory: Breath sounds normal, Clear to auscultation, No respiratory distress Cardiovascular: Regular rate & rhythm, Heart sounds normal Abdomen / GI: Soft, Non-tender Extremities: Vascular intact, Neuro intact, No swelling, No tenderness Skin: Warm, Dry, No cyanosis Alertness: Positive: Sleeping but arousable Behavior: Positive: Appears intoxicated Appearance / Presentation: Positive: Intoxicated Neurologic: No motor deficits, No sensory deficits Abnormal Thinking / Perception: Positive: Suicidal, no plan (vague, states always suicidal) Interpretation & Diagnostics Interpretation & Diagnostics: Breathalyzer at intake: 0.120 Breathalyzer @ 0340: 0.071 Lab Results Interpretation Result Diagram: 12/27/167 12/27/1636 Test 12/27/16 00:37 White Blood Count 5.8th/mm3 (3.8-10.1) Red Blood Count 4.57mil/mm3 (4.40-5.80) Hemoglobin 15.7g/dL (13.8-17.2) Hematocrit 45.4% (41.0-50.0) Mean Corpuscular Volume 99.3fL (81-100) Mean Corpuscular Hemoglobin 34.4pg (27.0-35.0) Mean Corpuscular Hemoglobin Concent 34.6% (32.0-37.0) Red Cell Distribution Width 12.9% (12.3-15.4) Platelet Count 189bil/L (150-400) Neutrophils (%) (Auto) 51.7% (40-74) Lymphocytes (%) (Auto) 33.3% (14-46) Monocytes (%) (Auto) 9.5% (4-12) Eosinophils (%) (Auto) 4.3% (0-5) Basophils (%) (Auto) 0.9% (0-3) Sodium Level 142mEq/L (134-144) Potassium Level 3.8mEq/L (3.5-5.2) Chloride Level 102mEq/L (97-108) Carbon Dioxide Level 20mmol/L (18-29) Blood Urea Nitrogen 11mg/dL (6-24) Creatinine 0.76mg/dL (0.76-1.27) Estimat Glomerular Filtration Rate 112mL/min (>59) Glucose Level 122mg/dL (60-99) Calcium Level 8.9mg/dL (8.5-10.1) Total Bilirubin 0.2mg/dL (0.0-1.2) Aspartate Amino Transf (AST/SGOT) 18U/L (0-50) Alanine Aminotransferase (ALT/SGPT) 20U/L (0-44) Alkaline Phosphatase 88U/L (25-160) Total Protein 6.7g/dL (6.4-8.4) Albumin 4.0g/dL (3.4-5.0) Thyroid Stimulating Hormone (TSH) 2.190uIU/mL (0.450-4.500) Re-Eval/Medical Decision Med Decision/Clinical Course 61-year-old with chronic depression, substance abuse, suicidality, presents again intoxicated, with suicidal ideation. Allowed to sleep overnight to metabolize his alcohol and then reinterviewed this morning. He persists in his desire to walk in front of traffic or lie down from a train. He will not contract for safety. He is no lower intoxicated and can be evaluated. He is not voluntary at this point. Signed out of [address] Hong for further evaluation. Should be eligible for DCR evaluation at this point, and is medically clear. Source of Hx: Old records Re-Evaluation/Progress #1: Time of Eval: 03:50 Patient Status: Condition improved Re-Evaluation/Progress Note: Rechecked the patient. He is now below the legal alcohol limit. Discussed the patient's suicidality. The patient is now requesting to be discharged home. However he will not agree to be safe and therefore cannot leave the ED. Patient states that if he leaves the ED he will kill himself. Patient states that he would kill himself by jumping in front of traffic or a train. Patient will therefore be moved to the psychitric rooms in the back. Re-Evaluation/Progress #2: Time of Eval: 04:11 Re-Evaluation/Progress Note: Patient refuses to be cooperative with moving to the back. He refuses medications. Patient will be given a B52 and a Deonna Epps was called. Re-Evaluation/Progress #3: Time of Eval: 04:30 Re-Evaluation/Progress Note: Patient is now sedated and will remain in his room. Patient was placed into restraints. Face to face evaluation performed. Re-Evaluation/Progress #4: Time of Eval: 05:28 Re-Evaluation/Progress Note: Patient is now out of restraints. Counseled Regarding: Diagnosis, Lab results Discharge & Departure Shift Change Sign-Out Patient Care Transferred: Yes Discussed Complaint(s): Yes Laboratory Evaluation: Lab evaluation discussed Response to Therapy: Improved Additonal Information: Awaiting REAL ESTATE OPERATIONS MANAGER evalution Impression: Primary Impression: Suicidal ideation Additional Impression: Alcohol abuse Discharge Condition All VS Reviewed: Yes Referrals: Mercedes Stern MD (PCP) Care Transferred to: Dr. Hong Care Transferred at: 06:00 Kristen Attestation Portions of this note were transcribed by Nicolasa Whitley. I, Dr. Cooper personally performed the history, physical exam and medical decision-making; I reviewed and confirmed the accuracy of the information in the transcribed note. Signed by: Kristen Foote, 12/27/2016 0600 copies to: Mercedes Stern MD, Christopher W MD Dec 26, 2016 23:36 Nicolasa Whitley Dec 26, 2016 23:49
[2016-12-27 00:42] LABS: BASOPHILS % (AUTO) 0.9 % (0-3); EOSINOPHILS % (AUTO) 4.3 % (0-5); MONOCYTES % (AUTO) 9.5 % (4-12); Mean Corpuscular Hemoglobin 34.4 pg (27.0-35.0); Mean Corpuscular Volume 99.3 fL (81-100); NEUTROPHILS % (AUTO) 51.7 % (40-74); Platelet Count 189 bil/L (150-400)
[2016-12-27 01:02] VITALS: BP 96/60; PULSE 82; RESP 16; O2SAT 95
[2016-12-27] MEDS ORDERED: Haloperidol 5 mg/mL Inj ONE (04:10)
[2016-12-27] MEDS ORDERED: Haloperidol 5 mg/mL Inj IM ONE (04:10)
[2016-12-27 05:37] VITALS: BP 98/68; PULSE 84; RESP 16; O2SAT 96
[2016-12-27 07:44] VITALS: BP 132/81; PULSE 102; O2SAT 97
== END 2016-12-27 19:55 | disposition home or self-care (01) ==
LOC: SED 23:00
DX: R45.851 Suicidal ideations (principal); F10.10 Alcohol abuse, uncomplicated; I10 Essential (primary) hypertension; J44.9 Chronic obstructive pulmonary disease, unspecified; F17.200 Nicotine dependence, unspecified, uncomplicated; Z88.0 Allergy status to penicillin
CPT/HCPCS: 36415; 80053; 81002; 82075; 84443; 85025; 96372; 99285; J1200; J1630; J2060

== ENCOUNTER 2017-04-11 10:17 | Emergency (ER) | payer OTHER ==
[~2017-04-11 10:17] MED LIST changes: -ALBU18HF INHALATION; -ARIP10TA16 PO; -BUPR-97 PO; -CLOP75TA3 PO; -FLUT12AE8 IH; -MULT-1073 PO; -PRAV40TA PO
[2017-04-11 10:20] VITALS: BP 158/90; PULSE 87; RESP 18; O2SAT 97
--- NOTE | 2017-04-11 10:48 | ED.REPORT ---
HPI-Overdose/Alcohol Toxicity Date of Service Apr 11, 2017 ED Provider: Dr. Hall Pt is a 62 y/o male w/ a hx of frequent ED visits for SI, multiple suicide attempts, alcohol abuse, major depression, HTN, presenting to the ED via PD due to alcohol intoxication. The patient was found to be intoxicated by police and brought to the ED. He was left in the waiting room where he took off all his clothes. He doesn't want to answer any questions and would rather sleep. Further history unable to be obtained due to uncooperative patient. Nursing Notes Stated Complaint: DETOX Nursing Notes Reviewed: Yes Allergies: Coded Allergies: Penicillins (Verified Allergy, Unknown, 04/11/17) Scheduled Atorvastatin Calcium (Atorvastatin Calcium) 40 Mg Tablet 40 MG PO DAILYWD Clopidogrel (Clopidogrel) 75 Mg Tablet 75 MG PO DAILY Metoprolol Succinate ER (Metoprolol Succinate ER) 50 Mg Tab.er.24h 50 MG PO DAILY Sertraline HCl (Sertraline) 100 Mg Tablet 200 MG PO DAILY General Time Seen by Provider: 11:33 Chief Complaint Intoxicated, alcohol Hx Obtained From: Patient, Police Unable to Obtain Hx: Uncooperative Arrived By: Police Onset Occurred: 1 - 4 hours ago Symptom Duration: Since onset Past Medical History Past Medical History History of previous Suicide attempts, last care center admission March 2015, April 2016, and December 2016. also SAMANTHA to [facility] August 2014 (suicide attempts in 2009 by overdose, again overdose in 2013) Hypertension Hypercholesteremia History of peripheral arterial disease Emphysema Alcohol abuse Depression Anxiety Reports: COPD Reports: Depression Past Surgical History vasectomy Family History Noncontributory Smoking History Current Every Day Smoker Social History Previous suicide attempts Alcohol Use: >5 per day Drug Use: Denies drug use Other Social History: Frequent ED visitor, Local resident Occupation lives with mother. unemployed at present Ambulatory Status Independent Review of Systems Unable to Obtain ROS Uncooperative, Intoxicated Physical Exam Initial Vital Signs Vital Signs (First) Date Time Temp Pulse Resp B/P Pulse Ox O2 Delivery O2 Flow Rate FiO2 04/11/17 10:20 36.6 87 18 158/90 97 Room Air Initial VS: Reviewed, Vital signs normal Head / Eyes: Normocephalic Neck: Full range of motion Extremities: Vascular intact Skin: Dry, No cyanosis General/Constitutional: Awake, No acute distress, Not toxic appearing Behavior: Positive: Appears intoxicated Appearance / Presentation: Positive: Intoxicated Lieing down comfortably refusing to cooperate Smell strongly of alcohol Respiratory / Chest: No respiratory distress Cardiovascular: Heart rate NL Abdomen: No distention Neurologic: Oriented X3, No motor deficits Refuses to cooperate Psychiatric: No hallucinations Unable to assess secondary to him not wanting to answer questions Interpretation & Diagnostics Lab Results Interpretation Result Diagram: 04/11/17 1045 04/11/17 1045 Test 04/11/17 10:45 White Blood Count 9.2th/mm3 (3.8-10.1) Red Blood Count 4.99mil/mm3 (4.40-5.80) Hemoglobin 17.1g/dL (13.8-17.2) Hematocrit 50.3% (41.0-50.0) Mean Corpuscular Volume 100.8fL (81-100) Mean Corpuscular Hemoglobin 34.3pg (27.0-35.0) Mean Corpuscular Hemoglobin Concent 34.0% (32.0-37.0) Red Cell Distribution Width 13.2% (12.3-15.4) Platelet Count 241bil/L (150-400) Neutrophils (%) (Auto) 65.6% (40-74) Lymphocytes (%) (Auto) 27.6% (14-46) Monocytes (%) (Auto) 4.9% (4-12) Eosinophils (%) (Auto) 0.7% (0-5) Basophils (%) (Auto) 1.0% (0-3) Sodium Level 143mEq/L (134-144) Potassium Level 4.8mEq/L (3.5-5.2) Chloride Level 106mEq/L (97-108) Carbon Dioxide Level 21mmol/L (18-29) Blood Urea Nitrogen 7mg/dL (8-27) Creatinine 0.86mg/dL (0.76-1.27) Estimat Glomerular Filtration Rate 96mL/min (>59) Glucose Level 112mg/dL (60-99) Calcium Level 9.4mg/dL (8.5-10.1) Total Bilirubin 0.2mg/dL (0.0-1.2) Aspartate Amino Transf (AST/SGOT) 22U/L (0-50) Alanine Aminotransferase (ALT/SGPT) 16U/L (0-44) Alkaline Phosphatase 119U/L (25-160) Total Protein 7.7g/dL (6.4-8.4) Albumin 4.3g/dL (3.4-5.0) Thyroid Stimulating Hormone (TSH) 2.060uIU/mL (0.450-4.500) Alcohols 267mg/dL (0-10) Lab Results Interpretation: Urine drug screen negative Re-Eval/Medical Decision Med Decision/Clinical Course 62-year-old male history of alcohol abuse presenting intoxicated. Was brought in by police for public intoxication. He was taking off his clothes. On arrival his blood alcohol level is 260. He was observed for greater than 8 hours and was critically sober and was not withdrawing at time of discharge. He denied any suicidal ideation or homicidal ideation. Discussed with social media developer who agrees with discharge home. Discharged in the care of his sister. Source of Hx: Old records Re-Evaluation/Progress #1: Time of Eval: 11:33 Re-Evaluation/Progress Note: Patient greeted face to face after being put in seclusion due to taking all his clothes off repeatedly in the ED. Re-Evaluation/Progress #2: Time of Eval: 15:47 Re-Evaluation/Progress Note: Pt rechecked. Nurses and sitters have witnessed him ambulating without difficulty. When I rechecked him he doesn't want to move or speak to me. Re-Evaluation/Progress #3: Time of Eval: 17:37 Re-Evaluation/Progress Note: Pt rechecked. Ambulatory. Does not endorse HI or SI. Informed pt of plan for discharge. Pt understands and agrees with plan for discharge. F/U instructions and RTER warnings given. All questions addressed. Consultation : Consulted With: sawmill relief worker Call Returned at: 17:37 Nurse Practitioner Physicians Assistant: Agrees with eval, Agrees with plan Note: Agrees with plan for d/c. Counseled Regarding: Diagnosis, Lab results, Need for follow-up, When/why to return to ED Discharge & Departure Impression: Primary Impression: Alcohol intoxication Complication of substance-induced condition: uncomplicated Qualified Code: F10.120 - Alcohol abuse with intoxication, uncomplicated Disposition: Home Discharge Condition All VS Reviewed: Yes Condition: Stable Patient Instructions: Alcohol Intoxication (ED) Additional Instructions: You were brought in to the emergency department because you were intoxicated. I recommend you not drink copious amounts of alcohol. Return to the emergency department if you have any thoughts of harming yourself or others, or if you are experience symptoms of withdrawal. Follow-up with your primary care doctor or counselor in 2-3 days for a recheck. Referrals: Mercedes Stern MD (PCP) Scribe Attestation Portions of this note were transcribed by Dustin Rodriguez. I, Dr. Hall personally performed the history, physical exam and medical decision-making; I reviewed and confirmed the accuracy of the information in the transcribed note. copies to: Mercedes Stern MD, Ben M MD Apr 11, 2017 10:48 DUSTIN RODRIGUEZ Apr 11, 2017 10:53
[2017-04-11 12:15] LABS: EOSINOPHILS % (AUTO) 0.7 % (0-5); MONOCYTES % (AUTO) 4.9 % (4-12); Mean Corpuscular Hemoglobin 34.3 pg (27.0-35.0); Mean Corpuscular Volume 100.8 fL (81-100); NEUTROPHILS % (AUTO) 65.6 % (40-74); Platelet Count 241 bil/L (150-400)
[2017-04-11 17:02] VITALS: BP 105/62; PULSE 69; RESP 16; O2SAT 94
[2017-04-11 19:05] VITALS: BP 123/78; PULSE 85; RESP 20; O2SAT 96
== END 2017-04-11 19:06 | disposition home or self-care (01) ==
LOC: SED 10:17
DX: F10.120 Alcohol abuse with intoxication, uncomplicated (principal); I10 Essential (primary) hypertension; J44.9 Chronic obstructive pulmonary disease, unspecified; F17.200 Nicotine dependence, unspecified, uncomplicated; R45.1 Restlessness and agitation; Z91.5 Personal history of self-harm; Z86.39 Personal history of other endocrine, nutritional and metabolic disease; Z86.79 Personal history of other diseases of the circulatory system; Z88.0 Allergy status to penicillin
CPT/HCPCS: 36415; 80053; 82075; 84443; 85025; 99284; G0480

== ENCOUNTER 2017-05-04 11:41 | Inpatient (IN) | payer OTHER ==
[~2017-05-04] VITALS: Ht 182.9 cm; Wt 81.8 kg
[~2017-05-04 11:41] MED LIST changes: -METO-272 PO; +METO-369 PO
[2017-05-04 11:54] VITALS: BP 111/81; PULSE 88; RESP 16; O2SAT 96
--- NOTE | 2017-05-04 12:07 | ED.REPORT ---
HPI-Psychiatric Illness Date of Service May 04, 2017 ED Provider: Tobin Soto DO Patient is a 62 year old male with a hx of depression, previous psychiatric admission, and previous suicide attempt who presents to the ED via EMS complaining of suicidal ideation. Associated symptoms include feeling depressed. Upon examination, patient is uncooperative, refusing to open his eyes or answer questions. He presents with a breathalyzer level of 229. Patient was hospitalized at [facility] 2 years ago. He has not had a counselor for 6 mo. Nursing Notes Stated Complaint: DEPRESSED Chief Complaint: Psychiatric Complaint Nursing Notes Reviewed: Yes Allergies: Coded Allergies: Penicillins (Verified Allergy, Unknown, 04/11/17) Scheduled Atorvastatin Calcium (Atorvastatin Calcium) 40 Mg Tablet 40 MG PO DAILYWD Clopidogrel (Clopidogrel) 75 Mg Tablet 75 MG PO DAILY Metoprolol Succinate ER (Metoprolol Succinate ER) 50 Mg Tab.er.24h 50 MG PO DAILY Sertraline HCl (Sertraline) 100 Mg Tablet 200 MG PO DAILY General Time Seen by MD: 11:51 Chief Complaint Suicidal ideation Hx Obtained From: EMS Arrived By: Ambulance Onset Occurred: Onset unknown Context of Onset: EtOH use, Intoxicated, alcohol Severity: Current: No pain currently Severity: Maximum: No pain Immunizations: Unknown Recent Healthcare: Recent doctor visit Similar Sx Previous: Yes Risk-Psychiatric Illness Suicide Risk Stratification Suicide Risk Factors - Adult: : Alcohol use: Previous attempt: Prior psych admission: Substance abuse RF Statements: Risk factors reviewed Past Medical History Past Medical History History of previous Suicide attempts, last care center admission March 2015, April 2016, and December 2016. also SAM[facility]THA to [facility] August 2014 (suicide attempts in 2009 by overdose, again overdose in 2013) Hypertension Hypercholesteremia History of peripheral arterial disease Emphysema Alcohol abuse Depression Anxiety Reports: COPD Reports: Depression Past Surgical History vasectomy Family History Noncontributory Smoking History Current Every Day Smoker Social History Previous suicide attempts Alcohol Use: >5 per day Drug Use: Denies drug use Other Social History: Frequent ED visitor, Local resident Occupation lives with mother. unemployed at present. ex[employer] Ambulatory Status Independent Unable to Obtain History Past medical history, Past surgical history, Family history, Smoking history, Social history, Occupation Review of Systems Unable to Obtain ROS Uncooperative Physical Exam Unable to obtain exam due to pt being uncooperative. When asked to open his eyes , he shuts them tighter. Initial Vital Signs Vital Signs (First) Date Time Temp Pulse Resp B/P Pulse Ox O2 Delivery O2 Flow Rate FiO2 05/04/17 11:54 36.8 88 16 111/81 96 Room Air Initial VS: Reviewed, Vital signs normal Head / Eyes: Atraumatic Skin: Warm, Dry Alertness: Positive: Responds to verb stimuli moving all extremities, responds to verbal cues Non verbal unable to test further Head / Eyes: Atraumatic, Normocephalic Interpretation & Diagnostics Lab Results Interpretation Result Diagram: 05/04/17 1222 05/04/17 1222 Test 05/04/17 12:22 05/04/17 14:30 White Blood Count 7.9th/mm3 (3.8-10.1) Red Blood Count 4.81mil/mm3 (4.40-5.80) Hemoglobin 16.3g/dL (13.8-17.2) Hematocrit 47.1% (41.0-50.0) Mean Corpuscular Volume 97.9fL (81-100) Mean Corpuscular Hemoglobin 33.9pg (27.0-35.0) Mean Corpuscular Hemoglobin Concent 34.6% (32.0-37.0) Red Cell Distribution Width 12.8% (12.3-15.4) Platelet Count 255bil/L (150-400) Neutrophils (%) (Auto) 69.1% (40-74) Lymphocytes (%) (Auto) 22.7% (14-46) Monocytes (%) (Auto) 6.3% (4-12) Eosinophils (%) (Auto) 1.0% (0-5) Basophils (%) (Auto) 0.6% (0-3) Sodium Level 143mEq/L (134-144) Potassium Level 4.4mEq/L (3.5-5.2) Chloride Level 105mEq/L (97-108) Carbon Dioxide Level 20mmol/L (18-29) Blood Urea Nitrogen 10mg/dL (8-27) Creatinine 0.82mg/dL (0.76-1.27) Estimat Glomerular Filtration Rate 102mL/min (>59) Glucose Level 114mg/dL (60-99) Calcium Level 9.4mg/dL (8.5-10.1) Total Bilirubin 0.2mg/dL (0.0-1.2) Aspartate Amino Transf (AST/SGOT) 13U/L (0-50) Alanine Aminotransferase (ALT/SGPT) 15U/L (0-44) Alkaline Phosphatase 115U/L (25-160) Total Protein 7.0g/dL (6.4-8.4) Albumin 4.4g/dL (3.4-5.0) Thyroid Stimulating Hormone (TSH) 1.500uIU/mL (0.450-4.500) Hold Epps Top Tube Received (Received) Hold Urine Received (Received) CT Head Interpretation IMPRESSION: 1. No acute intracranial abnormalities. 2. Cerebral volume loss and chronic microvascular ischemic changes. Dictated by: Carrie Barreto M.D. on 05/04/2017 at 12:45 Approved by: Carrie Barreto M.D. on 05/04/2017 at 12:48 Study: Head CT no contrast Interpretation / Wet Read by: Interpret - Radiologist Re-Eval/Medical Decision Med Decision/Clinical Course Intoxicated and suicidal. Will plan to allow for sobriety and be reevaluated Re-Evaluation/Progress : Time of Eval: 14:47 Re-Evaluation/Progress Note: Informed that patient eloped out of the ED. Patient was returned to the ED and is now resting comfortably. He did not obtain any injuries. I did personally go to the bedside and see this patient at this time. Will be put into seclusion. Discharge & Departure Shift Change Sign-Out Patient Care Transferred: Yes Discussed Complaint(s): Yes Laboratory Evaluation: Ordered, not yet done Imaging Studies: Done, reviewed by me Additonal Information: Transfer of care to Dr. Menjivar at 1500. Impression: Primary Impression: Alcohol intoxication Complication of substance-induced condition: uncomplicated Qualified Code: F10.120 - Alcohol abuse with intoxication, uncomplicated Discharge Condition All VS Reviewed: Yes Condition: Stable Referrals: Mercedes Stern MD (PCP) Care Transferred to: Dr. Menjivar Care Transferred at: 15:00 Scribe Attestation Portions of this note were transcribed by Jevon Sultana. I, Dr. Soto personally performed the history, physical exam and medical decision-making; I reviewed and confirmed the accuracy of the information in the transcribed note. Signed by: Kristen Resendiz, 05/04/17 copies to: Mercedes Stern MD, Timothy S DO May 04, 2017 12:07 JEVON SULTANA May 04, 2017 12:16
[2017-05-04 12:30] LABS: BASOPHILS % (AUTO) 0.6 % (0-3); MONOCYTES % (AUTO) 6.3 % (4-12); Mean Corpuscular Hemoglobin 33.9 pg (27.0-35.0); Mean Corpuscular Volume 97.9 fL (81-100); NEUTROPHILS % (AUTO) 69.1 % (40-74); Platelet Count 255 bil/L (150-400)
--- NOTE | 2017-05-04 12:50 | DRSVH ---
PROCEDURE: CT BRAIN WITHOUT CONTRAST ([id number]) INDICATIONS: ALOC TECHNIQUE: Noncontrast 4.5 mm thick angled axial sections acquired from the foramen magnum to the vertex, with c oronal reformats. COMPARISON: [facility], CT, CT BRAIN WO CON, 05/15/2016, 13:22. [facility], CT, CT BRAIN WO CON, 05/31/2016, 13:28. FINDINGS: Image quality: Excellent. CSF spaces: Basal cisterns are patent. No extra-axial fluid collections. The ventricles are symmet darrell in size and shape. Brain: No intracranial bleeds or masses. There is cerebral volume loss for age, with resultant vent ricular and sulcal prominence. There are periventricular and deep white matter chronic small vessel ischemic changes. There is intracranial internal carotid artery atherosclerosis. Skull and face: Calvarium and visualized facial bones appear intact, without suspicious lesions. Sinuses: Visualized sinuses and mastoids are clear. IMPRESSION: 1. No acute intracranial abnormalities. 2. Cerebral volume loss and chronic microvascular ischemic changes. Dictated by: Carrie Barreto M.D. on 05/04/2017 at 12:45 Approved by: Carrie Barreto M.D. on 05/04/2017 at 12:48
[2017-05-04 16:13] VITALS: BP 115/78; PULSE 92; RESP 16; O2SAT 97
[2017-05-04 22:04] VITALS: BP 115/78; PULSE 92; RESP 16
--- NOTE | 2017-05-04 22:15 | NUR ---
Nurses Admission note 62 year old involuntary male admitted with increasing suicidal ideation,depression and alcohol abuse. Patient presented to the unit alert,oriented and cooperative. He contracted for safety while here. Patient stated he failed to follow-up with AA meetings when last discharged from the unit. Patient has H/O HPTN, PAD, Hyperlipidema,COPD.Patient denied drinking daily stating Binge drinking occasionally but usually a bottle of vodka and drinks alone. Will maintain q 15min. checks for safety and support. Addendum: 05/04/17 at 2323 by TAYLOR YOUNG RN Nurses Note Patients' reported last ANUJ = 0.076 from the ER.
[2017-05-04 22:30] VITALS: BP 138/89; PULSE 84; RESP 16
[2017-05-04] MEDS ORDERED: Alum-Mag Hydrox-Simeth 30 mL Suspension PO PRN (22:40)
[2017-05-04] MEDS ORDERED: Benzocaine-Menthol Lozenge 2/Pkg PO PRN (22:40)
[2017-05-04] MEDS ORDERED: Magnesium Hydroxide 10 mL Oral Concentration PO PRN (22:40)
--- NOTE | 2017-05-05 03:42 | NUR ---
ADMIT/Noc OBS [id number] Pt arrived to unit from our ER at 2215. To room and all papers signed. Pt went directly to bed and was asleep by 2245. Observed Q15 as ordered.
--- NOTE | 2017-05-05 05:08 | NUR ---
nursing, nights, 11-7 s/o- has appeared to sleep after 2244 during q 15 minute assessments. a- no apparent distress. p- monitor behavior/emotional state, quality, times and amount of sleep, use and effect of medication. amira
[2017-05-05 08:32] VITALS: BP 133/84; PULSE 81; RESP 15
[2017-05-05] MEDS: MeTOProlol XL 50 mg ER24 Tablet PO SCH (09:37)
[2017-05-05 12:45] VITALS: BP 116/83; PULSE 75; RESP 18
--- NOTE | 2017-05-05 14:05 | NUR ---
Nursin to 1500 S: I am just not hungry. To question, Are you suicidal as you were when admitted?, he answered,"I was drunk" O: Denies suicidality at present. Denies withdrawal symptoms. No observable tremors in hands. Vital signs(BP) has not been above 150 systolic and so no Valium given. Refused lunch and breakfast. Spends most of his time in his room. A: Feeling less suicidal than at time of admission. P: Continue to assess for withdrawal symptoms. Addendum: 05/05/17 at 1423 by LUIS BLAKE RN Amended: Links added.
--- NOTE | 2017-05-05 15:08 | HP ---
[address] [address] HISTORY AND PHYSICAL PATIENT: CASTRO REYNOLDS : 1955 MR#: [id number] ADMIT: 05/04/2017 JOB ID: [id number] IDENTIFYING DATA: The patient is a 62-year-old male with a history of depression, alcoholism, and suicidal ideation in the context of alcohol use. CHIEF COMPLAINT: " I don't really recall." Regarding the events leading up to his hospitalization. HISTORY OF PRESENT ILLNESS: The patient had contacted 911 requesting assistance due to suicidal ideation. He was brought by emergency medical services to the emergency department where he was found to have a blood alcohol level of 229. The patient refused to answer questions and at one point attempted to elope from the emergency department. He was subsequently seen by the designated mental health professional and refused to cooperate and was subsequently detained. The patient had previously reported a history of depression beginning in his teens, with his mood worsening in his early 50s, with decreased interest, socialization, and decreased initial and middle insomnia. He also reported a decrease in appetite with no weight change. The patient had been hospitalized in August 2014 at [facility] and was transferred to [facility], and from there transferred to [facility] and was released on a 90 day less restrictive order. The patient reported taking Zoloft since his early 30s and is currently taking 200 mg daily. He reported that following his divorce in 2011 he had few social supports and little meaning to his life and reported worsening depression and had switched from daily drinking to binge drinking. The patient currently reports binge drinking approximately once per month a fifth to a half a gallon over a couple of days. He reports this episode he started drinking on . He reports his only activities are some hobbies of working on old cars and yard work. PAST PSYCHIATRIC HISTORY: The patient is currently followed by his outpatient provider, Mercedes Nguyen MD for his medication. He has had several inpatient hospitalizations; the last was at [facility] in December 2016, preceded by April 2016 and March 2015. He has had one 90 day less restrictive order with treatment at [facility] and was followed at [facility] but has not been there in some time. Past suicide attempt in 2008 or 2009 with an overdose of prescriptions and again in August 2014. He denies a history of self injurious behavior. FAMILY HISTORY: He denies a family history of mental illness, completed suicide, or substance abuse. There are no family medical related illnesses. SUBSTANCE USE AND TREATMENT: The patient reports he began drinking alcohol first in his teens and regularly in his 20s. The patient reports being a binge drinker and previously reported drinking several times a month and reports approximately six months ago he cut back to approximately once per month. He denies a history of cocaine, amphetamines, heroin, marijuana, hallucinogens, or IV drug abuse. The patient has had inpatient treatment at [facility] for 28 days in 2004 and remained clean and sober for a few months. The patient has a history of AA but has not gone to meetings or had a sponsor in some time. He reports that when he did have a sponsor it helped him to remain sober for approximately six months. SOCIAL HISTORY: The patient was born in [place], [place] and raised in [place]. He has one younger sister. He is a high school graduate. He was for 19 years and in 2011. He has two stepchildren aged 27 and 29. He reports that his parents were while he was growing up and he denied any history of physical, sexual, or emotional abuse. 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 He receives approximately 1700 dollars per month in intermediate and lives with his sister and thcyonn-xr-sgt in [place]. The patient reports that they are his only social support and he is unsure how they feel about this most recent visit. The patient reports a number of DUIs, at least three, the last in 2006. CURRENT MEDICAL PROBLEMS: Hypertension, hypercholesterolemia, history of peripheral artery disease, emphysema, COPD, and vasectomy. The patient also reports a history of five arterial shunt placements. He denies a history of seizure or loss of consciousness. LABORATORY FINDINGS: CBC and CMP within normal limits except for a glucose nonfasting of 114. Alcohol level of 229. Urine tox otherwise negative. Physical Exam unremarkable. CURRENT MEDICATIONS: Sertraline 200 mg daily, Metoprolol 50 mg daily, Clopidogrel 75 mg daily, Atorvastatin 40 mg daily with dinner. ALLERGIES: PENICILLINS. MENTAL STATUS EXAMINATION: Appearance: The patient is an adequately dressed male, appearing somewhat older than his stated age, wearing hospital issue clothing, appearing somewhat unkempt. Behavior: The patient is pleasant and cooperative, with good eye contact. There is a mild tongue tremor noted but no other tremors. Speech: Normal rate, volume, and tone. Mood: "All right." Affect: Restricted to sad, with occasional smiling. Thought processes: Linked, linear, and organized. Thought content: He denies suicidal or homicidal ideation, auditory or visual hallucinations, thought insertion, thought withdrawal, thought broadcasting, or ideas of reference. The patient rates his anxiety as 5/10 and his depression as 5/10. Insight and judgment: Fair. Intelligence: In the average range based upon history and vocabulary. Memory and concentration: A 3/3 object recall at 0 minutes and 3/3 object recall at 3 minutes. Intelligence: Appears to be in the average range based upon history and vocabulary. He was able to do serial sevens accurately to 72 and then added 63. He was able to repeat the phrase "no ifs, ands, or buts" but required two tries. He reported the distance from here to [place] was approximately 3000 miles and the current president was "Mr. Alvarado." Orientation: He was oriented to May 05, 2017, [facility], [place], [place]. Sensorium: The patient was alert and oriented, without evidence of delirium or dementia. DSM-IV DIAGNOSES: [place] I: 1. Major depressive episode, recurrent, without psychotic features. 2. Alcohol use disorder. [place] II: Deferred. [place] III: See past medical history. [place] IV: Moderate to severe, with limited social supports and poor coping skills. [place] V: Global Assessment of Functioning 40. IMPRESSION: The patient is a 62-year-old male with a long history of depression and alcohol dependence who presents with recent suicidal ideation and dysphoria following alcohol intoxication. The patient was subsequently detained as danger to self. The patient continues to have a limited social [place] and limited coping skills, which appear to be exacerbating his symptoms. The patient also has little to no support regarding his chronic alcohol use in the community. The patient would benefit from skills building regarding frustration tolerance and community assistance with remaining sober. PLAN: 1. The patient will be admitted to the [facility] [place] and be provided a safe and secure environment. 2. The patient is currently denying suicidal ideation and is not in need of a one-to-one at this time. 3. The patient will be encouraged to attend group and milieu activities. 4. The patient will be seen by the treatment team on a daily basis to assess symptoms, side effects, and response to treatment. 5. The patient will have his vital signs checked every 4 hours, although there appears to be no evidence of alcohol withdrawal, but should this occur he will receive diazepam 10 mg up to every 4 hours. 6. The patient will be restarted on his outpatient medications. 7. The patient will need referral for substance use treatment given two ITAs in an approximately four month period of time which are alcohol related. 8. Estimated length of stay is 2-3 days. MTDD
--- NOTE | 2017-05-05 16:53 | NUR ---
Observations 0900 to 2130 Pt did not eat breakfast or lunch. Pt ate a string cheese. Pt briefly came out in morning but refused food. Pt spends most of shift resting quietly in bed. Pt is pleasant upon approach but prefers to keep to himself. Pt maintained behavioral control and showed no signs of abnormal behavior. Pt respirations were observed when asleep. Staff completed 15 min close observations as ordered.
[2017-05-05 16:56] VITALS: BP 125/80; PULSE 64; RESP 18
--- NOTE | 2017-05-05 23:04 | NUR ---
Nurses Note Evening Patient has been isolating to his room except for meals and medications. His affect has been brighter,denied suicide ideation Patients BP has been stable. Will encourage continued sobriety and medication compliance. Addendum: 05/05/17 at 2312 by TAYLOR YOUNG RN Amended: Links added.
--- NOTE | 2017-05-06 04:58 | NUR ---
nursing, nights, 11-7 s/o- has appeared to sleep after 1814 during q 15 minute assessments. a- no apparent distress. p- monitor behavior/emotional state, quality, times and amount of sleep, use and effect of medication. amira
[2017-05-06 06:00] VITALS: BP 110/75; PULSE 94; RESP 16
[2017-05-06 06:24] VITALS: BP 110/75; PULSE 78; RESP 16
[2017-05-06] MEDS: MeTOProlol XL 50 mg ER24 Tablet PO SCH (09:05)
[2017-05-06 10:00] VITALS: BP 107/70; PULSE 92
[2017-05-06 14:00] VITALS: BP 103/67; PULSE 67; RESP 16
--- NOTE | 2017-05-06 14:09 | NUR ---
Nursing 7a-3p Pt denies anxiety or depression stating "I'm fine." He has been out for meals and went to morning group. The rest of the time he spends resting in bed. Took scheduled medication without difficulty. No complaints.
--- NOTE | 2017-05-06 15:17 | PCM.PNPSY ---
Subjective Date of Service May 06, 2017 Subjective The patient reports that he is doing well, but is "a little tired." The patient denies withdrawal, medical issues, or side effects. Discussed need for proper outpatient plan prior to discharge given to SAMANTHA's in the last 4 months. The patient reports that he has not spoken to his relatives but believes that they are aware that he is in the hospital. Sleep: 11 hours Appetite: "Okay" Suicidal and homicidal ideation: Denies Auditory hallucinations/Visual hallucinations: Denies Other Psychotic Symptoms: N/A Anxiety: 4-01/10 "Okay" Depression: 4-01/10 Current Medications Current Medications Atorvastatin Calcium 40 mg 18 PO Last administered on 05/05/17 17:55; Admin Dose 40 MG; Start 05/05/17 at 18:00 Clopidogrel Bisulfate 75 mg DAILY PO Last administered on 05/06/17 09:06; Admin Dose 75 MG; Start 05/05/17 at 08:30 Metoprolol Succinate 50 mg DAILY PO Last administered on 05/06/17 09:05; Admin Dose 50 MG; Start 05/05/17 at 08:30 Sertraline HCl 200 mg DAILY PO Last administered on 05/06/17 09:06; Admin Dose 200 MG; Start 05/05/17 at 08:30 Mental Status Exam Appearance: Neat/well groomed Attitude: Pleasant, Cooperative Behavior: No unusual behavior Affect: Well Modulated/Appropriate Mood: Euthymic Thought Process/Associations: Logical/Sequential, Goal Directed Speech Production: Normal Speech Rate: Normal Speech Articulation: Normal Thought Content: Appropriate Danger to Self/Suicidal Ideati: None Danger to Others: None Hallucinations: Auditory (Denies), Visual (Denies) Consciousness: Alert Orientation: Person, Place, Date, Situation Memory: Grossly Intact Estimate Intellectual Function: Average Basis for IQ estimate: Word use/vocabulary, Educational history, Employment history Attention/Concentration & Cogn: Grossly Intact Insight: Good Judgement: Limited Result Diagram: 05/04/17 1222 05/04/17 1222 Mental Health Plan The patient is a 62-year-old male with a long history of depression and alcohol dependence who presents with recent suicidal ideation and dysphoria following alcohol intoxication. The patient was subsequently detained as danger to self. The patient continues to have a limited social [place] and limited coping skills , which appear to be exacerbating his symptoms. The patient also has little to no support regarding his chronic alcohol use in the community. The patient would benefit from skills building regarding frustration tolerance and community assistance with remaining sober. The patient is currently denying withdrawal symptoms or acute mood symptoms. Continued adequate safety plan prior to discharge. [place] I: 1. Major depressive episode, recurrent, without psychotic features. 2. Alcohol use disorder. [place] II: Deferred. [place] III: See past medical history. [place] IV: Moderate to severe, with limited social supports and poor coping skills. [place] V: Global Assessment of Functioning 40. Medications Sertraline 200 mg daily Clopidogrel 75 mg daily Metoprolol 50 mg daily Atorvastatin 40 mg at 6 PM NicoDerm 21 mg patch, patient declining Treatments 1. The patient will be admitted to the [facility] [place] and be provided a safe and secure environment. 2. The patient is currently denying suicidal ideation and is not in need of a one-to-one at this time. 3. The patient will be encouraged to attend group and milieu activities. 4. The patient will be seen by the treatment team on a daily basis to assess symptoms, side effects, and response to treatment. 5. Continue current medications. 6. The patient will need referral or plan for substance use treatment given two ITAs in an approximately four month period of time which are alcohol related. 7. Estimated length of stay is 2-3 days. James Harris MD May 06, 2017 15:17
--- NOTE | 2017-05-06 16:47 | PCM.EDPN ---
ED Note Date of Service May 04, [address] Soto at shift change. Awaiting DCR evaluation. Pt rested quietly and was detained by DCR. Admitted to mental health unit. Clinical Impression: Major depressive disorder and alcohol abuse. Williams Menjivar MD May 06, 2017 16:47
--- NOTE | 2017-05-06 18:48 | NUR ---
Observations [id number] Pt had limited engagement with staff and peers- spent much of the day between resting in bed and in dining area watching TV. Pt did attend Community Meeting and friendly with peers when approached. Pt attended all meals, eating an average of 60%. Pt was observed every 15 minutes of shift as directed.
--- NOTE | 2017-05-06 23:40 | NUR ---
Nurses Note Evening Patient has been without symptoms of withdrawal with stable vital signs. He has been in the TV room most of the shift with a blunted sad affect. Patients' appetite has been minimal as well as hydration.He denied feelings of self harm and will be monitored q 15min for support and safety. Addendum: 05/06/17 at 2346 by TAYLOR YOUNG RN Amended: Links added.
--- NOTE | 2017-05-07 06:03 | NUR ---
Nursing Note Firer Watertender 11pm to 7am Pt asleep at start of shift and remained asleep the duration of the shift. No issues reported or observed. Monitored q 15 minutes for safety, location, and accountability
[2017-05-07] MEDS: MeTOProlol XL 50 mg ER24 Tablet PO SCH (09:05)
[2017-05-07 11:20] VITALS: BP 97/60; PULSE 61; RESP 16
--- NOTE | 2017-05-07 13:22 | NUR ---
Nursing 7a-3p Pt reports feeling "Bored. Just waiting." Denies symptoms of anxiety, depression or harmful thoughts. He is not interested in offered activities,"I might watch TV." Pt out for meals but spends most of his time laying in bed. He denies complaints. Taking medication as scheduled.
--- NOTE | 2017-05-07 15:35 | PCM.PNPSY ---
Subjective Date of Service May 07, 2017 Subjective The patient reports that he is doing well, but is "just before." The patient denies withdrawal, medical issues, or side effects. The patient reported speaking to his sister who was supportive. Discussed need for proper outpatient plan prior to discharge given two recent SAMANTHA's in the last 4 months. Discussed the plan to investigate possible CD assessment while the patient is still in the hospital and the possible use of naltrexone or acamprosate for reduced alcohol use. Sleep: 7.25 hours Appetite: "Fine" Suicidal and homicidal ideation: Denies Auditory hallucinations/Visual hallucinations: Denies Other Psychotic Symptoms: N/A Anxiety: 10/13 Depression: 10/13 Current Medications Current Medications Atorvastatin Calcium 40 mg 18 PO Last administered on 05/06/17t 18:06; Admin Dose 40 MG; Start 05/05/17 at 18:00 Mental Status Exam Vital Signs Vital Signs Date Time Temp Pulse Resp B/P Pulse Ox O2 Delivery O2 Flow Rate FiO2 05/07/17 11:20 35.4 61 16 97/60 Appearance: Neat/well groomed Attitude: Pleasant, Cooperative Behavior: No unusual behavior Affect: Well Modulated/Appropriate Mood: Euthymic Thought Process/Associations: Logical/Sequential, Goal Directed Speech Production: Normal Speech Rate: Normal Speech Articulation: Normal Thought Content: Appropriate Danger to Self/Suicidal Ideati: None Danger to Others: None Hallucinations: Auditory (Denies), Visual (Denies) Consciousness: Alert Orientation: Person, Place, Date, Situation Memory: Grossly Intact Estimate Intellectual Function: Average Basis for IQ estimate: Word use/vocabulary, Educational history, Employment history Attention/Concentration & Cogn: Grossly Intact Insight: Good Judgement: Limited Result Diagram: 05/04/17 1222 05/04/17 1222 Mental Health Plan The patient is a 62-year-old male with a long history of depression and alcohol dependence who presents with recent suicidal ideation and dysphoria following alcohol intoxication. The patient was subsequently detained as danger to self. The patient continues to have a limited social match-[id number]she[employer] and limited coping skills , which appear to be exacerbating his symptoms. The patient also has little to no support regarding his chronic alcohol use in the community. The patient would benefit from skills building regarding frustration tolerance and community assistance with remaining sober. The patient is currently denying withdrawal symptoms or acute mood symptoms. Continued adequate safety plan prior to discharge. Investigate possible CD assessment and use of adjunctive medications to reduce alcohol use. [place] I: 1. Major depressive episode, recurrent, without psychotic features. 2. Alcohol use disorder. [place] II: Deferred. [place] III: See past medical history. [place] IV: Moderate to severe, with limited social supports and poor coping skills. [place] V: Global Assessment of Functioning 40. Medications Sertraline 200 mg daily Clopidogrel 75 mg daily Metoprolol 50 mg daily Atorvastatin 40 mg at 6 PM NicoDerm 21 mg patch, patient declining Treatments 1. The patient will be admitted to the [facility] and be provided a safe and secure environment. 2. The patient is currently denying suicidal ideation and is not in need of a one-to-one at this time. 3. The patient will be encouraged to attend group and milieu activities. 4. The patient will be seen by the treatment team on a daily basis to assess symptoms, side effects, and response to treatment. 5. Continue current medications. 6. The patient will need referral or plan for substance use treatment given two ITAs in an approximately four month period of time which are alcohol related (CD assessment, consider medications to reduce craving will need to discuss with outpatient provider). 7. Estimated length of stay is 2-3 days. James Harris MD May 07, 2017 15:35
--- NOTE | 2017-05-07 17:28 | NUR ---
Adult Services Librarian/Counselor S:"I'm just bored." O: Patient denies any SI or HI, no AVH, rated his anxiety and depression at a 2. A: Patient is open to a chemical dependency evaluation. CM will contact [facility] on 05/08/2017. Patient is also interested in Naltroxene treatment. P: Follow care plan and coordinate with outpatient providers.
--- NOTE | 2017-05-07 23:42 | NUR ---
NURSE NOTE EVENING SHIFT [id number]: Pt has mostly been in the dayroom watching TV, isolating to himself. Pt spoke with staff appropriately and stated that he was looking forward to going home tomorrow. Pt went to bed at 2030. Pt monitored q15 minutes for location, safety and accountability.
--- NOTE | 2017-05-08 01:29 | NUR ---
Observations 1900 to 0700 Pt ate a snack. Pt spends free time watching TV. Pt keeps to self but is pleasant upon approach. Pt maintained behavioral control and showed no signs of abnormal behavior. Pt appeared asleep at 2100 and has remained asleep. Pt respirations were observed when asleep. Staff completed 15 min close observations as ordered.
--- NOTE | 2017-05-08 07:17 | NUR ---
Nursing Note 11pm to 7am Pt asleep at start of shift and remianed asleep for the duration.
[2017-05-08] MEDS: MeTOProlol XL 50 mg ER24 Tablet PO SCH (08:31)
--- NOTE | 2017-05-08 15:10 | PCM.DIMED ---
Discharge Instructions Date of Service May 08, 2017 Dates of Hospitalization May 04, 2017 at 21:27 Discharge Diagnosis Discharge Diagnosis [place] I: 1. Major depressive episode, recurrent, without psychotic features. 2. Alcohol use disorder. [place] II: Deferred. [place] III: Hypertension, hypercholesterolemia, history of peripheral artery disease, emphysema, COPD, and vasectomy,arterial shunt placements. [place] IV: Moderate to severe, with limited social supports and coping skills. [place] V: Global Assessment of Functioning 50. Medication Instructions Additional med instructions When you are ready to reduce your alcohol use, you may wish to discuss with your provider using naltrexone or acamprosate to reduce cravings. Test Results Test Results CBC Test 05/04/17 12:22 White Blood Count 7.9th/mm3 (3.8-10.1) Red Blood Count 4.81mil/mm3 (4.40-5.80) Hemoglobin 16.3g/dL (13.8-17.2) Hematocrit 47.1% (41.0-50.0) Mean Corpuscular Volume 97.9fL (81-100) Mean Corpuscular Hemoglobin 33.9pg (27.0-35.0) Mean Corpuscular Hemoglobin Concent 34.6% (32.0-37.0) Red Cell Distribution Width 12.8% (12.3-15.4) Platelet Count 255bil/L (150-400) Neutrophils (%) (Auto) 69.1% (40-74) Lymphocytes (%) (Auto) 22.7% (14-46) Monocytes (%) (Auto) 6.3% (4-12) Eosinophils (%) (Auto) 1.0% (0-5) Basophils (%) (Auto) 0.6% (0-3) CMP Test 05/04/17 12:22 Sodium Level 143mEq/L Potassium Level 4.4mEq/L Chloride Level 105mEq/L Carbon Dioxide Level 20mmol/L Blood Urea Nitrogen 10mg/dL Creatinine 0.82mg/dL Estimat Glomerular Filtration Rate 102mL/min Glucose Level 114mg/dL Calcium Level 9.4mg/dL Total Bilirubin 0.2mg/dL Aspartate Amino Transf (AST/SGOT) 13U/L Alanine Aminotransferase (ALT/SGPT) 15U/L Alkaline Phosphatase 115U/L Total Protein 7.0g/dL Albumin 4.4g/dL Thyroid Stimulating Hormone (TSH) 1.500uIU/mL Hold Epps Top Tube Received Diet Discharge Diet: No restrictions Activity Discharge Activity: No restrictions Patient Instructions Patient Instructions Should you have any thoughts of harming yourself or others, please call the crisis line, your provider, 911, or go to the nearest Emergency Department. Do not change or discontinue your medications without discussing with your provider. Continue taking your current medication Follow-up plan Primary Care Mercedes Stern MD appointment per counselor [facility] [address] [place] [address] James Harris MD May 08, 2017 15:10
--- NOTE | 2017-05-08 16:28 | NUR ---
Nursing Discharge Note: Patient cooperative with discharge process. Acknowledges understanding of d/c instructions and has a copy with them upon leaving unit at 1603. Belongings accounted for and with patient. Patient verbalizes having adequate medications at home so no prescriptions given. Patient denies harmful thoughts and hallucinations at this time.
--- NOTE | 2017-05-08 17:39 | NUR ---
Airframe Technical Officer/Counselor S:"I'm just going to go back to my place. My sister will pick me up." O: Patient denies any SI or HI, no AVH, no anxiety or depression. A: Patient was provided with all necessary discharge paperwork and will return to his place of living. He has an appt. with Dr Becerra at [facility] on 05/11/2017 and will discuss the option of Naltrexone. Patient was also advised to contact [facility] or [facility] for a Chemical Dependency assessment but patient did not express any interest in pursuing that option. P: Follow discharge plan.
--- NOTE | 2017-05-08 23:45 | PCM.DC.MED ---
Discharge Summary Date of Service May 08, 2017 Dates of Hospitalization Date of Hospital Admission May 04, 2017 at 21:27 Date of Discharge: May 08, 2017 Providers: Admitting Physician: James Harris MD Primary Care Physician: Mercedes Stern MD Attending Physician: James Harris MD Diagnosis at Time of Discharge Diagnosis at Time of Discharge [place] I: 1. Major depressive episode, recurrent, without psychotic features. 2. Alcohol use disorder. [place] II: Deferred. [place] III: Hypertension, hypercholesterolemia, history of peripheral artery disease, emphysema, COPD, and vasectomy,arterial shunt placements. [place] IV: Moderate to severe, with limited social supports and coping skills. [place] V: Global Assessment of Functioning 50. Brief History IDENTIFYING DATA: The patient is a 62-year-old male with a history of depression, alcoholism, and suicidal ideation in the context of alcohol use. CHIEF COMPLAINT: " I don't really recall." Regarding the events leading up to his hospitalization. HISTORY OF PRESENT ILLNESS: The patient had contacted 911 requesting assistance due to suicidal ideation. He was brought by emergency medical services to the emergency department where he was found to have a blood alcohol level of 229. The patient refused to answer questions and at one point attempted to elope from the emergency department. He was subsequently seen by the designated mental health professional and refused to cooperate and was subsequently detained. The patient had previously reported a history of depression beginning in his teens, with his mood worsening in his early 50s, with decreased interest, socialization, and decreased initial and middle insomnia. He also reported a decrease in appetite with no weight change. The patient had been hospitalized in August 2014 at [facility] and was [facility], and from there transferred to [facility] and was released on a 90 day less restrictive order. The patient reported taking Zoloft since his early 30s and is currently taking 200 mg daily. He reported that following his divorce in 2011 he had few social supports and little meaning to his life and reported worsening depression and had switched from daily drinking to binge drinking. The patient currently reports binge drinking approximately once per month a fifth to a half a gallon over a couple of days. He reports this episode he started drinking on . He reports his only activities are some hobbies of working on old cars and yard work. PAST PSYCHIATRIC HISTORY: The patient is currently followed by his outpatient provider, Mercedes Stern MD for his medication. He has had several inpatient hospitalizations; the last was at [facility] in December 2016, preceded by April 2016 and March 2015. He has had one 90 day less restrictive order with treatment at [facility] and was followed at [facility] but has not been there in some time. Past suicide attempt in 2008 or 2009 with an overdose of prescriptions and again in August 2014. He denies a history of self injurious behavior. Hospital Course The patient was admitted to the unit and restarted on his outpatient medications. The patient was monitored for potential withdrawal but did not demonstrate signs of alcohol withdrawal. Once through his recovery from intoxication, the patient returned to baseline and denied acute psychiatric symptoms. He indicated that he was not interested in abstaining from alcohol despite having two recent SAMANTHA detentions and obvious deleterious effects. The patient also declined medication to help with withdrawal; however, it was confirmed with his outpatient provider that should he decide to use naltrexone in the future, his outpatient provider would be able to prescribe this for him. He declined referral to [facility] for CD assessment. He denied acute medical issues. At the time of discharge, the patient was reporting his mood was "good." Sleep was reported as "fine," 9+ hours per staff. Appetite was reported as "okay." His anxiety was reported as 0/10 and depression as 0/10. He denied auditory or visual hallucinations, paranoia, and any thought, intent or plan of hurting himself or others. He denied medication side effects. Exam Vital Signs (Last) Date Time Temp Pulse Resp B/P Pulse Ox O2 Delivery O2 Flow Rate FiO2 05/07/17 11:20 35.4 61 16 97/60 05/04/17 22:04 Room Air 05/04/17 16:13 97 Exam Discharge Mental Status Exam Appearance: Neat/well groomed Attitude: Pleasant, Cooperative Behavior: No unusual behavior Affect: Well Modulated/Appropriate Mood: Euthymic Thought Process/Associations: Logical/Sequential, Goal Directed Speech Production: Normal Speech Rate: Normal Speech Articulation: Normal Thought Content: Appropriate Danger to Self/Suicidal Ideation: None Danger to Others: None Hallucinations: Auditory (Denies), Visual (Denies) Consciousness: Alert Orientation: Person, Place, Date, Situation Memory: Grossly Intact Estimate Intellectual Function: Average Basis for IQ estimate: Word use/vocabulary, Educational history, Employment history Attention/Concentration & Cognition: Grossly Intact Insight: Good Judgment: Limited Test 05/04/17 12:22 05/04/17 14:30 White Blood Count 7.9th/mm3 (3.8-10.1) Red Blood Count 4.81mil/mm3 (4.40-5.80) Hemoglobin 16.3g/dL (13.8-17.2) Hematocrit 47.1% (41.0-50.0) Mean Corpuscular Volume 97.9fL (81-100) Mean Corpuscular Hemoglobin 33.9pg (27.0-35.0) Mean Corpuscular Hemoglobin Concent 34.6% (32.0-37.0) Red Cell Distribution Width 12.8% (12.3-15.4) Platelet Count 255bil/L (150-400) Neutrophils (%) (Auto) 69.1% (40-74) Lymphocytes (%) (Auto) 22.7% (14-46) Monocytes (%) (Auto) 6.3% (4-12) Eosinophils (%) (Auto) 1.0% (0-5) Basophils (%) (Auto) 0.6% (0-3) Sodium Level 143mEq/L (134-144) Potassium Level 4.4mEq/L (3.5-5.2) Chloride Level 105mEq/L (97-108) Carbon Dioxide Level 20mmol/L (18-29) Blood Urea Nitrogen 10mg/dL (8-27) Creatinine 0.82mg/dL (0.76-1.27) Estimat Glomerular Filtration Rate 102mL/min (>59) Glucose Level 114mg/dL (60-99) Calcium Level 9.4mg/dL (8.5-10.1) Total Bilirubin 0.2mg/dL (0.0-1.2) Aspartate Amino Transf (AST/SGOT) 13U/L (0-50) Alanine Aminotransferase (ALT/SGPT) 15U/L (0-44) Alkaline Phosphatase 115U/L (25-160) Total Protein 7.0g/dL (6.4-8.4) Albumin 4.4g/dL (3.4-5.0) Thyroid Stimulating Hormone (TSH) 1.500uIU/mL (0.450-4.500) Hold Epps Top Tube Received (Received) Hold Urine Received (Received) Discharge Medications Discharge Medications Atorvastatin Calcium (Atorvastatin Calcium) 40 Mg Tablet 40 MG PO DAILYWD ( Reported) Clopidogrel (Clopidogrel) 75 Mg Tablet 75 MG PO DAILY (Reported) Metoprolol Succinate ER (Metoprolol Succinate ER) 50 Mg Tab.er.24h 50 MG PO DAILY (Reported) Sertraline HCl (Sertraline) 100 Mg Tablet 200 MG PO DAILY (Reported) Additional med instructions When you are ready to reduce your alcohol use, you may wish to discuss with your provider using naltrexone or acamprosate to reduce cravings. Followup Plan Disposition: As the patient's symptoms appeared to be the direct result of substance use and symptoms had completely resolved, there was no indication for further prison and the patient was released into the care of his sister. The patient verbally consented to take the prescribed medications. The patient verbally expressed understanding of the risks, benefits, alternative treatment options, and risks of not taking the prescribed medication. The patient verbally expressed understanding of the medication instructions, that he will adhere to the prescribed medication, and that he will go to all aftercare scheduled appointments. Follow-up plan Primary Care Mercedes Stern MD appointment per counselor [facility] [address] [place] [address] Discharge Diet: No restrictions Discharge Activity: No restrictions Patient Instructions Should you have any thoughts of harming yourself or others, please call the crisis line, your provider, 911, or go to the nearest Emergency Department. Do not change or discontinue your medications without discussing with your provider. Continue taking your current medication James Harris MD May 08, 2017 15:51
== END 2017-05-08 16:03 | disposition home or self-care (01) | DRG 885 ==
LOC: EDBD 11:41 → SED 11:41 → EDUNIT# 11:41 → MHC 21:27
PROVIDERS: ADMIT Psychiatry & Neurology Psychiatry; ATTEND Psychiatry & Neurology Psychiatry
DX: F33.9 Major depressive disorder, recurrent, unspecified (principal); F10.229 Alcohol dependence with intoxication, unspecified; Y90.7 Blood alcohol level of 200-239 mg/100 ml